=== PATIENT | male | born 1945 | race African-American/Black ===

== ENCOUNTER 2016-08-11 23:31 | Emergency (ER) | payer MEDICARE ==
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
[2016-08-12] MEDS ORDERED: TETRACAINE HCL 0.5% OPH SOLN 2 ML OD ONE (01:37)
[2016-08-12] MEDS ORDERED: TETRACAINE HCL 0.5% OPH SOLN 2 ML ONE (01:40)
[2016-08-12 09:11] VITALS: BP 108/78
== END 2016-08-12 09:47 | disposition home or self-care (01) ==
LOC: ER 23:31
DX: S09.93XA Unspecified injury of face, initial encounter (principal); S02.32XA Fracture of orbital floor, left side, initial encounter for closed fracture; W19.XXXA Unspecified fall, initial encounter
CPT/HCPCS: 70450; 70486; 99284

== ENCOUNTER 2016-10-21 10:22 | Emergency (ER) | payer MEDICARE ==
--- NOTE | 2016-10-21 10:56 | RADIOLOGY REPORT (SQ) ---
EXAM DESCRIPTION: HAND RIGHT 3 VIEWS COMPLETED DATE/TIME: 10/21/2016 10:48 am REASON FOR STUDY: base of 1st digit swelling pain COMPARISON: None. EXAM PARAMETERS: NUMBER OF VIEWS: Three views. TECHNIQUE: AP, lateral and oblique radiographic images acquired of the right hand. LIMITATIONS: None. FINDINGS: MINERALIZATION: Normal. BONES: No acute fracture or dislocation. No worrisome bone lesions. JOINTS: Advanced osteoarthritis 1st C[facility] joint. Articulations otherwise maintained. SOFT TISSUES: No soft tissue swelling. No foreign body. OTHER: No other significant finding. IMPRESSION: DEGENERATIVE CHANGE 1ST [facility] JOINT. NO ACUTE OSSEOUS ABNORMALITY. TECHNICAL DOCUMENTATION: JOB ID: [id number] [employer]- All Rights Reserved
--- NOTE | 2016-10-21 11:08 | ER Document Report ---
ED General - General Chief Complaint: Hand Pain Stated Complaint: HAND PAIN Time Seen by Provider: 10/21/16 10:30 Mode of Arrival: Medic Information source: Emergency Med Personnel Cannot obtain history due to: Dementia Notes: 71 yr old male presents with concerns from dementia care facility with swelling of the base of the thumb. Pt denies any concerns or injuries, they are unsure of the time frame. TRAVEL OUTSIDE OF THE [place] IN LAST 30 DAYS: No - HPI Onset: Other Onset/Duration: Constant Quality of pain: Achy Severity: Mild Pain Level: 1 Associated symptoms: Body/muscle aches Exacerbated by: Movement Relieved by: Denies Similar symptoms previously: No Recently seen / treated by doctor: No - Related Data Allergies/Adverse Reactions: No Known Allergies Allergy (Verified 10/21/16 10:31) Past Medical History - Social History Smoking Status: Never Smoker Cigarette use (# per day): No Chew tobacco use (# tins/day): No Smoking Education Provided: No Family History: Reviewed & Not Pertinent - Past Medical History Cardiac Medical History: Reports: Hx Atrial Fibrillation, Hx Hypercholesterolemia, Hx Hypertension Renal/ Medical History: Denies: Hx Peritoneal Dialysis - Immunizations Hx Diphtheria, Pertussis, Tetanus Vaccination: - unknown Review of Systems - Review of Systems Notes: REVIEW OF SYSTEMS: CONSTITUTIONAL : Denies fever, chills, or sweats. Denies recent illness. EENT: Denies eye, ear, throat, or mouth pain or symptoms. Denies nasal or sinus congestion or discharge. Denies throat, tongue, or mouth swelling or difficulty swallowing. CARDIOVASCULAR: Denies chest pain. Denies palpitations or racing or irregular heart beat. Denies ankle edema. RESPIRATORY: Denies cough, cold, or chest congestion. Denies shortness of breath, difficulty breathing, or wheezing. GASTROINTESTINAL: Denies abdominal pain or distention. Denies nausea, vomiting , or diarrhea. Denies blood in vomitus, stools, or per rectum. Denies black, tarry stools. Denies constipation. GENITOURINARY: Denies difficulty urinating, painful urination, burning, frequency, blood in urine, or discharge. MUSCULOSKELETAL: Denies back or neck pain or stiffness. Denies joint pain or swelling. SKIN: Denies rash, lesions or sores. HEMATOLOGIC : Denies easy bruising or bleeding. LYMPHATIC: Denies swollen, enlarged glands. NEUROLOGICAL: Denies confusion or altered mental status. Denies passing out or loss of consciousness. Denies dizziness or lightheadedness. Denies headache. Denies weakness or paralysis or loss of use of either side. Denies problems with gait or speech. Denies sensory loss, numbness, or tingling. Denies seizures. PSYCHIATRIC: Denies anxiety or stress. Denies depression, suicidal ideation, or homicidal ideation. ALL OTHER SYSTEMS REVIEWED AND NEGATIVE. Dictation was performed using [employer] voice recognition software PHYSICAL EXAMINATION: GENERAL: Well-appearing, well-nourished and in no acute distress. HEAD: Atraumatic, normocephalic. EYES: Pupils equal round and reactive to light, extraocular movements intact, sclera anicteric, conjunctiva are normal. ENT: Nares patent, oropharynx clear without exudates. Moist mucous membranes. NECK: Normal range of motion, supple without lymphadenopathy LUNGS: Breath sounds clear to auscultation bilaterally and equal. No wheezes rales or rhonchi. HEART: Regular rate and rhythm without murmurs ABDOMEN: Soft, nontender, nondistended abdomen. No guarding, no rebound. No masses appreciated. Musculoskeletal: Tenderness with range of motion of the first digit on the right hand mild edema on the palmar surface of the base of the first digit full range of motion no secondary signs of infection no obvious traumatic injury NEUROLOGICAL: Cranial nerves grossly intact. Normal speech, normal gait. Normal sensory, motor exams PSYCH: Dementia SKIN: Warm, Dry, normal turgor, no rashes or lesions noted. Course - Re-evaluation Re-evalutation: 10/21/16 11:08 X-rays consistent with osteoarthritic changes, no sign of infection is noted. I am unclear how long the patient has actually been swollen. He will be treated with anti-inflammatories given follow-up with orthopedics but at this time has no life-threatening issues After performing a Medical Screening Examination, I estimate there is LOW risk for INTRACRANIAL HEMORRHAGE, UNSTABLE SPINE FRACTURE, CENTRAL CORD SYNDROME, CAUDA EQUINA, THORACIC AORTIC DISSECTION, PNEUMOTHORAX, PERFORATED BOWEL, RUPTURED ABDOMINAL AORTIC ANEURYSM, ACUTE TENDON RUPTURE, COMPARTMENT SYNDROME, or OPEN FRACTURE, thus I consider the discharge disposition reasonable. Also, there is no evidence or peritonitis, sepsis, or toxicity. I have reevaluated this patient multiple times and no significant life threatening changes are noted. The patient and I have discussed the diagnosis and risks, and we agree with discharging home to follow-up with their primary doctor with the understanding that symptoms and presentations can change. We also discussed returning to the Emergency Department immediately if new or worsening symptoms occur. We have discussed the symptoms which are most concerning (e.g., bloody stool, fever, changing or worsening pain, vomiting) that necessitate immediate return. - Diagnostic Test Radiology reviewed: Image reviewed, Reports reviewed - osteoarthritic changes Discharge - Discharge Clinical Impression: Hand swelling Qualifiers: Laterality: right Qualified Code(s): M79.89 - Other specified soft tissue disorders Osteoarthritis Qualifiers: Osteoarthritis location: hand Osteoarthritis type: primary Laterality: right Qualified Code(s): M19.041 - Primary osteoarthritis, right hand Condition: Stable Disposition: HOME, SELF-CARE Instructions: Osteoarthritis ([facility]) Prescriptions: Ibuprofen [Motrin 600 Mg Tablet] 600 mg PO TID #15 tablet Referrals: MO POSADAS DO [ACTIVE STAFF] - Follow up tomorrow
[2016-10-21] MEDS ORDERED: IBUPROFEN 600 MG TABLET PO ONE (11:10)
[2016-10-21 11:57] VITALS: BP 136/81
== END 2016-10-21 11:57 | disposition home or self-care (01) ==
LOC: ER 10:22
DX: M79.89 Other specified soft tissue disorders (principal); M19.041 Primary osteoarthritis, right hand
CPT/HCPCS: 99284; 73130; A9270

== ENCOUNTER 2017-01-30 19:17 | Emergency (ER) | payer MEDICARE ==
[2017-01-30 20:20] LABS: ABSOLUTE MONOCYTES (AUTO) 0.5 10^3/uL (0.1-1.4); ABSOLUTE NEUT (AUTO) 2.4 10^3/uL (1.7-8.2); BASOPHILS % (AUTO) 0.9 % (0-2); EOSINOPHILS % (AUTO) 0.8 % (0-6); HEMATOCRIT 34.4 % (37.9-51.0); HEMOGLOBIN 11.8 g/dL (13.5-17.0); LYMPHOCYTES % (AUTO) 24.2 % (13-45); MEAN CORPUSCULAR HEMOGLOBIN 30.8 pg (27.0-33.4); MEAN CORPUSCULAR HGB CONC 34.3 g/dL (32.0-36.0); MEAN CORPUSCULAR VOLUME 90 fl (80-97); MONOCYTES % (AUTO) 12.5 % (3-13); RED BLOOD COUNT 3.83 10^6/uL (4.35-5.55); RED CELL DISTRIBUTION WIDTH 15.8 % (11.5-14.0); SEGMENTED NEUTROPHILS % (AUTO) 61.6 % (42-78); WHITE BLOOD COUNT 3.9 10^3/uL (4.0-10.5)
--- NOTE | 2017-01-30 21:06 | RADIOLOGY REPORT (SQ) ---
EXAM DESCRIPTION: CHEST SINGLE VIEW COMPLETED DATE/TIME: 01/30/2017 8:58 pm REASON FOR STUDY: eval pneumonia COMPARISON: None. EXAM PARAMETERS: NUMBER OF VIEWS: One view. TECHNIQUE: Single frontal radiographic view of the chest acquired. RADIATION DOSE: NA LIMITATIONS: None. FINDINGS: LUNGS AND PLEURA: No opacities, masses or pneumothorax. No pleural effusion. MEDIASTINUM AND HILAR STRUCTURES: No masses. Contour normal. HEART AND VASCULAR STRUCTURES: Cardiac silhouette is enlarged. Tortuous thoracic aorta is seen. BONES: No acute findings. HARDWARE: None in the chest. OTHER: No other significant finding. IMPRESSION: Cardiomegaly. No acute consolidations or pleural effusions are identified TECHNICAL DOCUMENTATION: JOB ID: [id number] [employer]- All Rights Reserved
[2017-01-30 21:11] LABS: ALANINE AMINOTRANSFERASE 29 U/L (21-72); ALBUMIN 4.6 g/dL (3.5-5.0); ALKALINE PHOSPHATASE 89 U/L (38-126); ANION GAP 12 (5-19); ASPARTATE AMINO TRANSFERASE 32 U/L (17-59); BILIRUBIN,DIRECT 0.3 mg/dL (0.0-0.4); BILIRUBIN,TOTAL 0.9 mg/dL (0.2-1.3); BLOOD UREA NITROGEN 17 mg/dL (7-20); CALCIUM 9.5 mg/dL (8.4-10.2); CARBON DIOXIDE 25 mmol/L (22-30); CHLORIDE 100 mmol/L (98-107); CREATININE RESULT 0.92 mg/dL (0.52-1.25); GLUCOSE 123 mg/dL (75-110); LIPASE 65.9 U/L (23-300); POTASSIUM 4.4 mmol/L (3.6-5.0); TOTAL PROTEIN 7.6 g/dL (6.3-8.2)
--- NOTE | 2017-01-30 22:11 | ER Document Report ---
ED General - General Chief Complaint: Nausea/Vomiting Stated Complaint: NAUSEA/VOMITING Time Seen by Provider: 01/30/17 19:38 Cannot obtain history due to: Dementia Notes: Patient is a 71-year-old man who presents from a [facility] with concerns of having an episode of vomiting and sweating. Patient is profoundly demented and unable to provide any additional history. The facility was apparently concerned as the patient resides in the location where apparently multiple patients have had pneumonia. TRAVEL OUTSIDE OF THE [place] IN LAST 30 DAYS: No - Related Data Allergies/Adverse Reactions: No Known Allergies Allergy (Verified 10/21/16 10:31) Past Medical History - General Information source: Emergency Med Personnel Cannot obtain history due to: Dementia - Social History Smoking Status: Unknown if Ever Smoked Lives with: [facility] Family History: Reviewed & Not Pertinent Patient has suicidal ideation: No Patient has homicidal ideation: No - Past Medical History Cardiac Medical History: Reports: Hx Atrial Fibrillation, Hx Hypercholesterolemia, Hx Hypertension Renal/ Medical History: Denies: Hx Peritoneal Dialysis - Immunizations Hx Diphtheria, Pertussis, Tetanus Vaccination: - unknown Review of Systems - Review of Systems -: Yes ROS unobtainable due to patient's medical condition Physical Exam - Vital signs Vitals: Temp Pulse Resp BP Pulse Ox 98.6 F 96 18 139/80 H 96 01/30/17 19:17 01/30/17 19:17 01/30/17 19:17 01/30/17 19:17 01/30/17 19:17 Interpretation: Normal Notes: PHYSICAL EXAMINATION: GENERAL: Elderly, in no acute distress HEAD: Atraumatic, normocephalic. EYES: Pupils equal round and reactive to light, extraocular movements intact, sclera anicteric, conjunctiva are normal. ENT: nares patent, oropharynx clear without exudates. Moderately dry mucous membranes. NECK: Normal range of motion, supple without lymphadenopathy LUNGS: Breath sounds clear to auscultation bilaterally and equal. No wheezes rales or rhonchi. HEART: Irregularly irregular rhythm without murmurs ABDOMEN: Soft, nontender, normoactive bowel sounds. No guarding, no rebound. No masses appreciated. EXTREMITIES: Normal range of motion, no pitting or edema. No cyanosis. NEUROLOGICAL: No focal neurological deficits. Moves all extremities spontaneously and on command. PSYCH: Alert, not oriented to even person SKIN: Warm, Dry, normal turgor, no rashes or lesions noted. Course - Re-evaluation Re-evalutation: 01/30/17 22:09 Patient presents with facility concerned that he had an episode of vomiting and sweating prior to arrival. Patient is extremely demented and unable to provide any meaningful history here in the emergency department. He does not have any acute complaints. No findings on physical examination. Laboratories are unremarkable. EKG without any ischemic changes. Chest x-ray is clear. I do not see an indication for further imaging or laboratory testing at this time based on exam and history. The exact etiology of his episode of vomiting is unclear but given the absence of any abdominal pain and his ongoing ability to tolerate oral intake here in the emergency room without any apparent difficulty or repeated episodes of vomiting makes the possibility of an acute intra- abdominal pathology unlikely. Will discharge with return precautions and follow -up recommendations. - Vital Signs Vital signs: Temp Pulse Resp BP Pulse Ox 97.9 F 94 20 153/88 H 100 01/30/17 22:26 01/30/17 22:26 01/30/17 22:26 01/30/17 22:26 01/30/17 22:26 - Laboratory Result Diagrams: 01/30/17 19:31 01/30/17 20:15 Laboratory results interpreted by me: 01/30/17 01/30/17 19:31 20:15 WBC 3.9 L RBC 3.83 L Hgb 11.8 L Hct 34.4 L RDW 15.8 H Plt Count 143 L Glucose 123 H - Diagnostic Test Radiology reviewed: Image reviewed, Reports reviewed Radiology results interpreted by me: 01/30/17 22:10 Chest x-ray: No acute infiltrate or pneumothorax - EKG Interpretation by Me Additional EKG results interpreted by me: 01/30/17 22:11 Atrial fibrillation. Rate 105. No ST elevations or depressions. QTC is 475. Discharge - Discharge Clinical Impression: Diaphoresis Vomiting Qualifiers: Vomiting type: unspecified Vomiting Intractability: non-intractable Nausea presence: without nausea Qualified Code(s): R11.11 - Vomiting without nausea Condition: Stable Disposition: HOME, SELF-CARE Additional Instructions: Please return to the emergency room immediately if you experience any concerning symptoms including high fevers, severe headache, chest pain, difficulty breathing, abdominal pain, slurred speech, numbness or weakness in your arms or legs, or any other symptom that concerns you.
[2017-01-30 22:30] VITALS: BP 153/88
--- NOTE | 2017-01-31 08:13 | EKG REPORT ---
SEVERITY:- ABNORMAL ECG - ATRIAL FIBRILLATION LEFT VENTRICULAR HYPERTROPHY BORDERLINE PROLONGED QT INTERVAL : Confirmed by: Markel Blake MD 31-Jan-2017 08:13:09
== END 2017-01-30 22:45 | disposition home or self-care (01) ==
LOC: ER 19:17
DX: R61 Generalized hyperhidrosis (principal); R11.11 Vomiting without nausea; F03.90 Unspecified dementia, unspecified severity, without behavioral disturbance, psychotic disturbance, mood disturbance, and anxiety; I48.91 Unspecified atrial fibrillation; E78.00 Pure hypercholesterolemia, unspecified; I10 Essential (primary) hypertension
CPT/HCPCS: 36415; 71010; 80053; 83690; 84484; 85025; 93005; 93010; 99284

== ENCOUNTER 2017-04-05 18:01 | Emergency (ER) | payer MEDICARE ==
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
== END 2017-04-05 22:15 | disposition home or self-care (01) ==
LOC: ER 18:01
DX: Z71.1 Person with feared health complaint in whom no diagnosis is made (principal); S09.93XA Unspecified injury of face, initial encounter; Y09 Assault by unspecified means
CPT/HCPCS: 99284

== ENCOUNTER 2017-08-14 17:33 | Emergency (ER) | payer MEDICARE ==
--- NOTE | 2017-08-14 18:32 | ER Document Report ---
ED General - General Chief Complaint: Altered Mental Status Stated Complaint: ALTERED MENTAL STATUS Time Seen by Provider: 08/14/17 18:15 Notes: This is a 72-year-old Alzheimer's dementia patient to the emergency department for evaluation of "not acting right". Patient unable to communicate with us. No documentation from snf. Apparently lives in an Alzheimer's unit. TRAVEL OUTSIDE OF THE [place]. IN LAST 30 DAYS: No - Related Data Allergies/Adverse Reactions: No Known Allergies Allergy (Verified 10/21/16 10:31) Past Medical History - General Information source: [facility] Records - Social History Smoking Status: Never Smoker Chew tobacco use (# tins/day): No Frequency of alcohol use: None Drug Abuse: None Lives with: Snf Family History: Reviewed & Not Pertinent Patient has suicidal ideation: No Patient has homicidal ideation: No - Past Medical History Cardiac Medical History: Reports: Hx Atrial Fibrillation, Hx Hypercholesterolemia, Hx Hypertension Renal/ Medical History: Denies: Hx Peritoneal Dialysis - Immunizations Hx Diphtheria, Pertussis, Tetanus Vaccination: - unknown Review of Systems - Review of Systems -: Yes ROS unobtainable due to patient's medical condition - Due to dementia Physical Exam - Vital signs Vitals: Temp Pulse Resp BP Pulse Ox 98.2 F 67 16 158/65 H 91 L 08/14/17 18:01 08/14/17 18:01 08/14/17 18:01 08/14/17 18:01 08/14/17 18:01 Interpretation: Normal - General General appearance: Appears well, Alert - HEENT Head: Normocephalic, Atraumatic Eyes: Normal Pupils: PERRL - Respiratory Respiratory status: No respiratory distress Chest status: Nontender Breath sounds: Normal Chest palpation: Normal - Cardiovascular Rhythm: Regular Heart sounds: Normal auscultation Murmur: No - Abdominal Inspection: Normal Distension: No distension Bowel sounds: Normal Tenderness: Nontender Organomegaly: No organomegaly - Back Back: Normal, Nontender - Extremities General upper extremity: Normal inspection, Nontender, Normal color, Normal ROM , Normal temperature General lower extremity: Normal inspection, Nontender, Normal color, Normal ROM , Normal temperature, Normal weight bearing. No: Juanito's sign - Neurological Neuro grossly intact: Yes Cognition: Confused Tatiana Coma Scale Eye Opening: Spontaneous [place] Coma Scale Verbal: Confused Motor strength normal: LUE, RUE, LLE, RLE Sensory: Normal Notes: Walking around the ER without difficulty - Skin Skin Temperature: Warm Skin Moisture: Dry Skin Color: Normal Course - Re-evaluation Re-evalutation: 08/14/17 18:47 No signs of trauma. Normal vital signs. No significant concern in my part at this time the patient has anything acute. Will order basic labs just to be safe. If able to get urine will evaluate that as well. 08/14/17 20:41 No major pathology at this time. Slightly elevated potassium but EKG does not show any signs of peaked T waves. Patient is eating. No acute distress. Will DC at this time. - Vital Signs Vital signs: Temp Pulse Resp BP Pulse Ox 98.2 F 67 16 158/65 H 91 L 08/14/17 18:01 08/14/17 18:01 08/14/17 18:01 08/14/17 18:01 08/14/17 18:01 - Laboratory Result Diagrams: 08/14/17 19:24 08/14/17 19:24 Laboratory results interpreted by me: 08/14/17 08/14/17 08/14/17 19:24 19:24 19:24 RBC 4.16 L Hgb 12.8 L Hct 37.6 L RDW 15.5 H Plt Count 140 L Potassium 5.3 H Glucose 171 H Urine Ascorbic Acid 40 H - EKG Interpretation by Ks EKG shows normal: Sinus rhythm, [place], Intervals, QRS Complexes, ST-T Waves Discharge - Discharge Clinical Impression: Dementia Qualifiers: Dementia type: Alzheimer's disease Alzheimer's disease onset: late-onset Dementia behavioral disturbance: without behavioral disturbance Qualified Code(s ): G30.1 - Alzheimer's disease with late onset; F02.80 - Dementia in other diseases classified elsewhere without behavioral disturbance; F02.80 - Dementia in other diseases classified elsewhere without behavioral disturbance; F02.80 - Dementia in other diseases classified elsewhere without behavioral disturbance Disposition: SNF-Other Instructions: Dementia ([facility])
[2017-08-14 19:34] LABS: ABSOLUTE BASOPHILS # (AUTO) 0.1 10^3/uL (0.0-0.2); ABSOLUTE LYMPHOCYTES (AUTO) 1.1 10^3/uL (0.5-4.7); ABSOLUTE MONOCYTES (AUTO) 0.3 10^3/uL (0.1-1.4); ABSOLUTE NEUT (AUTO) 2.6 10^3/uL (1.7-8.2); BASOPHILS % (AUTO) 1.2 % (0-2); EOSINOPHILS % (AUTO) 1.2 % (0-6); HEMATOCRIT 37.6 % (37.9-51.0); HEMOGLOBIN 12.8 g/dL (13.5-17.0); LYMPHOCYTES % (AUTO) 26.3 % (13-45); MEAN CORPUSCULAR HEMOGLOBIN 30.7 pg (27.0-33.4); MEAN CORPUSCULAR VOLUME 90 fl (80-97); MONOCYTES % (AUTO) 8.1 % (3-13); PLATELET COUNT 140 10^3/uL (150-450); RED BLOOD COUNT 4.16 10^6/uL (4.35-5.55); RED CELL DISTRIBUTION WIDTH 15.5 % (11.5-14.0); SEGMENTED NEUTROPHILS % (AUTO) 63.2 % (42-78); TOTAL CELLS COUNTED % (AUTO) 100 %; WHITE BLOOD COUNT 4.1 10^3/uL (4.0-10.5)
[2017-08-14 19:45] LABS: APPEARANCE,URINE CLEAR; BILIRUBIN,URINE NEGATIVE (NEGATIVE); COLOR,URINE YELLOW; GLUCOSE, URINE NEGATIVE (NEGATIVE); KETONES,URINE NEGATIVE (NEGATIVE); LEUKOCYTE ESTERASE,URINE NEGATIVE (NEGATIVE); NITRITE,URINE NEGATIVE (NEGATIVE); PROTEIN,URINE NEGATIVE (NEGATIVE); URINE SPECIFIC GRAVITY 1.018; UROBILINOGEN,URINE NEGATIVE mg/dL (<2.0)
[2017-08-14 19:53] LABS: ANION GAP 11 (5-19); BLOOD UREA NITROGEN 20 mg/dL (7-20); CARBON DIOXIDE 26 mmol/L (22-30); CHLORIDE 102 mmol/L (98-107); GLUCOSE 171 mg/dL (75-110); POTASSIUM 5.3 mmol/L (3.6-5.0); SODIUM 139.3 mmol/L (137-145)
--- NOTE | 2017-08-14 21:15 | EKG REPORT ---
SEVERITY:- ABNORMAL ECG - ATRIAL FIBRILLATION INCOMPLETE RIGHT BUNDLE BRANCH BLOCK : Confirmed by: Markel Blake MD 14-Aug-2017 21:13:53
[2017-08-14 21:23] VITALS: BP 154/86
== END 2017-08-14 21:20 ==
LOC: ER 17:33
DX: G30.1 Alzheimer's disease with late onset (principal); F02.80 Dementia in other diseases classified elsewhere, unspecified severity, without behavioral disturbance, psychotic disturbance, mood disturbance, and anxiety; I48.91 Unspecified atrial fibrillation
CPT/HCPCS: 36415; 80048; 81001; 82962; 85025; 93005; 93010; 99285

== ENCOUNTER 2017-09-14 17:05 | Emergency (ER) | payer MEDICARE ==
--- NOTE | 2017-09-14 17:43 | ER Document Report ---
ED General - General Chief Complaint: Back Pain Stated Complaint: ALTERED MENTAL STATUS Time Seen by Provider: 09/14/17 17:25 Mode of Arrival: Medic Information source: Outside Facility Records Cannot obtain history due to: Dementia Notes: 72-year-old male brought to the emergency department by EMS for back and hip pain. EMS state that the patient denies back or hip pain. Patient has a history of dementia and is a poor historian. Contacted the nurse at the group home and was told that they were concerned for possible urinary tract infection. No history of trauma or falls. The nurse caring for him says that he did not exhibit any pain to palpation of his back or hips. She is unsure why that was told to EMS. She says that the patient kept trying to get out of his bed. She was just concerned about UTI. Patient was at his normal mental status baseline upon transfer by EMS per nurse. TRAVEL OUTSIDE OF THE [place] IN LAST 30 DAYS: No - HPI Onset: Just prior to arrival Onset/Duration: Sudden Quality of pain: No pain Severity: None Pain Level: Denies Associated symptoms: None Exacerbated by: Denies Relieved by: Denies - Related Data Allergies/Adverse Reactions: No Known Allergies Allergy (Verified 10/21/16 10:31) Past Medical History - Social History Smoking Status: Unknown if Ever Smoked Family History: Reviewed & Not Pertinent - Past Medical History Cardiac Medical History: Reports: Hx Atrial Fibrillation, Hx Hypercholesterolemia, Hx Hypertension Renal/ Medical History: Denies: Hx Peritoneal Dialysis - Immunizations Hx Diphtheria, Pertussis, Tetanus Vaccination: - unknown Review of Systems - Review of Systems -: Yes ROS unobtainable due to patient's medical condition Physical Exam - Notes Notes: PHYSICAL EXAMINATION: GENERAL: Drowsy, pleasantly demented. HEAD: Atraumatic. EYES: Pupils equal round and reactive to light, extraocular movements intact, sclera anicteric, conjunctiva are normal. ENT: Nares patent, oropharynx clear without exudates. Moist mucous membranes. NECK: Normal range of motion, supple without lymphadenopathy LUNGS: Breath sounds clear to auscultation bilaterally and equal. No wheezes rales or rhonchi. HEART: Regular rate and rhythm without murmurs ABDOMEN: Soft, nontender, nondistended abdomen. No guarding, no rebound. No masses appreciated. Musculoskeletal: Normal range of motion, no pitting or edema. No cyanosis. No tenderness to palpation of the CTLS spine, hips, femur. NEUROLOGICAL: Cranial nerves grossly intact. Normal speech. Normal sensory, motor exams SKIN: Warm, Dry, normal turgor, no rashes or lesions noted. Course - Re-evaluation Re-evalutation: 09/14/17 19:17 Urinalysis is within normal limits. Pelvis x-ray was obtained and does not show acute process. L-spine images were done. Degenerative changes were seen. There is a T12 anterior wedge compression fracture that is age indeterminant. Height is not greater than 50%. Patient does not have any tenderness to palpation of this area. Nursing facility deny trauma or injury. I will refer the patient to orthopedic surgery. - Laboratory Laboratory results interpreted by me: 09/14/17 18:20 Urine Urobilinogen 4.0 H Discharge - Discharge Clinical Impression: T12 compression fracture Condition: Stable Disposition: HOME, SELF-CARE Instructions: Compression Fracture of the Spine ([facility]) Referrals: MO POSADAS DO [ACTIVE STAFF] - Follow up as needed
--- NOTE | 2017-09-14 18:20 | RADIOLOGY REPORT (SQ) ---
EXAM DESCRIPTION: HIP BILATERAL COMPLETED DATE/TIME: 09/14/2017 6:12 pm REASON FOR STUDY: back and hip pain COMPARISON: None. NUMBER OF VIEWS: Two views TECHNIQUE: AP pelvis and additional frog-leg view of both hips. LIMITATIONS: None. FINDINGS: MINERALIZATION: Normal. HIPS: No acute fracture or dislocation. No worrisome bone lesions. PELVIS AND SACRUM: No acute fracture or dislocation. No worrisome bone lesions. PUBIS AND ISCHIUM: No acute fracture. LOWER LUMBAR SPINE: Degenerative changes lower lumbar spine. SOFT TISSUES: No findings. OTHER: No other significant finding. IMPRESSION: NEGATIVE STUDY OF THE PELVIS AND HIPS. TECHNICAL DOCUMENTATION: JOB ID: [id number] [employer]- All Rights Reserved Reading location - IP/workstation name: [email or web address]
--- NOTE | 2017-09-14 18:22 | RADIOLOGY REPORT (SQ) ---
EXAM DESCRIPTION: L SPINE 2 VIEWS COMPLETED DATE/TIME: 09/14/2017 6:12 pm REASON FOR STUDY: back and hip pain COMPARISON: None. NUMBER OF VIEWS: 4views TECHNIQUE: AP and lateral, both obliques radiographic images acquired of the lumbar spine. LIMITATIONS: None. FINDINGS: MINERALIZATION: Normal. SEGMENTATION: Normal. No transitional anatomy. ALIGNMENT: Normal. VERTEBRAE: Anterior wedge compression fracture T12 age indeterminate. DISCS: Diffuse degenerative disc disease L2-3, L3-4, L4-5. POSTERIOR ELEMENTS: Pedicles and facets are intact. No pars defect or posterior arch defects. HARDWARE: None in the spine. PARASPINAL SOFT TISSUES: Normal. PELVIS: Intact as visualized. No fractures or worrisome bone lesions. SI joints intact. OTHER: No other significant finding. IMPRESSION: Anterior wedge compression fracture T12 age indeterminate. Multilevel degenerative discs. TECHNICAL DOCUMENTATION: JOB ID: [id number] [employer]- All Rights Reserved Reading location - IP/workstation name: [email or web address]
[2017-09-14 18:42] LABS: APPEARANCE,URINE CLEAR; BILIRUBIN,URINE NEGATIVE (NEGATIVE); COLOR,URINE YELLOW; GLUCOSE, URINE NEGATIVE (NEGATIVE); KETONES,URINE NEGATIVE (NEGATIVE); LEUKOCYTE ESTERASE,URINE NEGATIVE (NEGATIVE); NITRITE,URINE NEGATIVE (NEGATIVE); PROTEIN,URINE NEGATIVE (NEGATIVE)
== END 2017-09-14 20:00 | disposition home or self-care (01) ==
LOC: ER 17:05
DX: S22.089A Unspecified fracture of T11-T12 vertebra, initial encounter for closed fracture (principal); M54.9 Dorsalgia, unspecified; F03.90 Unspecified dementia, unspecified severity, without behavioral disturbance, psychotic disturbance, mood disturbance, and anxiety; I10 Essential (primary) hypertension; X58.XXXA Exposure to other specified factors, initial encounter
CPT/HCPCS: 51701; 72100; 73522; 81001; 99284

== ENCOUNTER 2017-09-17 10:04 | Emergency (ER) | payer MEDICARE ==
--- NOTE | 2017-09-17 11:15 | ER Document Report ---
ED General - General Mode of Arrival: Medic Information source: Emergency Med Personnel TRAVEL OUTSIDE OF THE [place] IN LAST 30 DAYS: No - General Chief Complaint: Back Pain Stated Complaint: FALL BACK PAIN Time Seen by Provider: 09/17/17 10:38 Notes: Patient is a 72-year-old demented male presenting to the emergency department via EMS from [facility] complaining of back pain. According to [facility] records and ED nurses note, patient was seen in the emergency department on 09/14/2017 due to a fall. Patient had an xray performed which showed a T11-T12 wedge compression fracture. Patient did not initially complain of any pain. Per ED nursing staff, patient was walking with staff at [facility] today when he fell to his knees due to pain. Staff there then proceeded to send him to the emergency department. At bedside patient does not answer all questions but denies pain denies pain to myself and nursing staff. (DILIP ENCINAS) - Related Data Allergies/Adverse Reactions: No Known Allergies Allergy (Verified 09/17/17 12:07) Past Medical History - Social History Smoking Status: Unknown if Ever Smoked Chew tobacco use (# tins/day): No Frequency of alcohol use: None Drug Abuse: None Family History: Reviewed & Not Pertinent Patient has suicidal ideation: No Patient has homicidal ideation: No - Past Medical History Cardiac Medical History: Reports: Hx Atrial Fibrillation, Hx Hypercholesterolemia, Hx Hypertension - Immunizations Hx Diphtheria, Pertussis, Tetanus Vaccination: - unknown Review of Systems - Review of Systems -: Yes ROS unobtainable due to patient's medical condition - Obtained from nurses note. Musculoskeletal: See HPI Physical Exam - Vital signs Vitals: Pulse 94 09/17/17 10:30 - Notes Notes: GENERAL: Alert, does not answer questions. Disoriented to person, place or time. No acute distress. HEAD: Normocephalic, atraumatic. EYES: Pupils equal, round, and reactive to light. Extraocular movements intact. ENT: Oral mucosa moist, tongue midline. NECK: Full range of motion. Supple. Trachea midline. LUNGS: Clear to auscultation bilaterally, no wheezes, rales, or rhonchi. No respiratory distress. HEART: 1/6 systolic injection murmur, mildly tachycardic. No gallops or rubs. ABDOMEN: Soft, non-tender. Non-distended. Easily reducible umbilical hernia. Bowel sounds present in all 4 quadrants. EXTREMITIES: Moves all 4 extremities spontaneously. NEUROLOGICAL: Demented at baseline, does not answer all questions. PSYCH: Normal affect, normal mood. SKIN: Warm, dry, normal turgor. No rashes or lesions noted. BACK: No midline bony tenderness. No step-offs or deformities. No evidence of trauma. (DILIP ENCINAS) correction to scribe exam, there is an "ejection murmur", not an injection murmur (ANITA WHALEN) Course - Re-evaluation Re-evalutation: 09/17/17 12:30 X-rays show unchanged chronic fractures in T11 and T12. No new fractures. skilled nursing reports that the patient collapsed from pain however here the patient is able to crawl out of bed, attempts to ambulate while trying to get out of his bed, rolls over in bed without any difficulty and denies any pain. No evidence of acute pain or acute fractures today. Patient will be discharged back to the [facility]. (ANITA WHALEN) - Vital Signs Vital signs: Temp Pulse Resp BP Pulse Ox 97.8 F 104 H 20 131/98 H 95 09/17/17 16:26 09/17/17 16:26 09/17/17 16:26 09/17/17 16:26 09/17/17 16:26 Discharge - Discharge Clinical Impression: T12 compression fracture Condition: Stable Disposition: HOME, SELF-CARE Additional Instructions: Today's x-rays did not show any signs of new fracture since his previous fall. Patient denies any pain for me here, there was no pain on his examination. I have prescribed Lidoderm patches that he can use to try and help with any pain that he may develop at the [facility]. Please follow-up with his primary care physician for further pain management. I feel given his exam today that it would be a poor choice to start narcotics in this patient who is already prone to falls. Prescriptions: Lidocaine [Lidoderm 5% (700 mg) Transdermal Patch] 1 patch TP DAILY #30 adh..patch Scribe Attestation: 09/17/17 18:02 I personally performed the services described in the documentation, reviewed and edited the documentation which was dictated to the scribe in my presence, and it accurately records my words and actions. (ANITA WHALEN) Scribe Documentation - Scribe Written by Frank:: Frank Marquez, 09/17/2017 11:23 acting as scribe for :: Macho
--- NOTE | 2017-09-17 12:05 | RADIOLOGY REPORT (SQ) ---
EXAM DESCRIPTION: L SPINE WHOLE COMPLETED DATE/TIME: 09/17/2017 11:38 am REASON FOR STUDY: repeat fall, back pain COMPARISON: 09/14/2017 NUMBER OF VIEWS: Five views including obliques. TECHNIQUE: AP, lateral, oblique, and sacral radiographic images acquired of the lumbar spine. LIMITATIONS: None. FINDINGS: MINERALIZATION: Normal. SEGMENTATION: Partial sacralization of L5 on the left. ALIGNMENT: Mild scoliosis convex to the right. VERTEBRAE: Old compression fractures at T11 and T12. No acute fractures. DISCS: Moderate degenerative disc disease. POSTERIOR ELEMENTS: Mild to moderate degenerative changes involving the facet joints. HARDWARE: None in the spine. PARASPINAL SOFT TISSUES: Normal. PELVIS: Intact as visualized. No fractures or worrisome bone lesions. SI joints intact. OTHER: No other significant finding. IMPRESSION: 1. Compression fractures at T11 and T12 which were present on the prior study. These a re age indeterminate but probably old. No new compression fractures. 2. Moderate degenerative changes. TECHNICAL DOCUMENTATION: JOB ID: [id number] [employer]- All Rights Reserved Reading location - IP/workstation name: [email or web address]
[2017-09-17 16:29] VITALS: BP 131/98
== END 2017-09-17 16:27 | disposition home or self-care (01) ==
LOC: ER 10:04
DX: M48.54XA Collapsed vertebra, not elsewhere classified, thoracic region, initial encounter for fracture (principal); I10 Essential (primary) hypertension; R00.0 Tachycardia, unspecified; R01.1 Cardiac murmur, unspecified
CPT/HCPCS: 99284; 72110; L0120

== ENCOUNTER → 2017-10-30 | Outpatient (CLI) | payer MEDICARE, OTHER ==
--- NOTE | 2017-10-30 15:46 | RADIOLOGY REPORT (SQ) ---
EXAM DESCRIPTION: T SPINE AP/LAT COMPLETED DATE/TIME: 10/30/2017 3:24 pm REASON FOR STUDY: WEDGE COMPRESSION FX OF T-SPINE Z53.9 PROCEDURE AND TREATMENT NOT CARRIED OUT, UN SPECIFIED R COMPARISON: None. NUMBER OF VIEWS: Two views. TECHNIQUE: AP and lateral radiographic images acquired of the thoracic spine. LIMITATIONS: Lower thoracic spine is not included optimally on the lateral view. FINDINGS: MINERALIZATION: Normal. ALIGNMENT: Upper lumbar scoliosis. VERTEBRAE: There is mild anterior wedging what appear to be T11 and T12. These vertebrae are not see n in their entirety. DISCS: No significant loss of height or significant narrowing. No large osteophytes. HARDWARE: None in the spine. MEDIASTINUM AND SOFT TISSUES: Normal heart size and aortic contour. No soft tissue abnormality. VISUALIZED LUNG TATE: Clear. OTHER: No other significant finding. IMPRESSION: Mild anterior wedging of what appear to be T11 and T12. These findings do not appear to be acute. TECHNICAL DOCUMENTATION: JOB ID: [id number] [employer]- All Rights Reserved Reading location - IP/workstation name: [email or web address]
--- NOTE | 2017-10-30 16:37 | RADIOLOGY REPORT (SQ) ---
EXAM DESCRIPTION: NM BONE SCAN LIMITED COMPLETED DATE/TIME: 10/30/2017 3:28 pm REASON FOR STUDY: S22.000A WEDGE COMPRESSION FRACTURE OF UNSPECIFIED THORACIC VERTEBRA, INITI Z53.9 PROCEDURE AND TREATMENT NOT CARRIED OUT, UNSPECIFIED R COMPARISON: Thoracic spine films 10/30/2017 Lumbar spine films 09/17/2017 RADIONUCLIDE AND DOSE: 21.6 millicuries Tc99m MDP. The route of agent administration: Intravenous. ADDITIONAL DRUGS AND DOSES: None. TECHNIQUE: Routine delayed images at 3 hours post radionuclide injection acquired of the bony skelet on including anterior and posterior, and multiple oblique projections and additional focused images a s needed. LIMITATIONS: None. FINDINGS: Patient has significant thoracic kyphosis. AP, posterior, and multiple oblique images of the thorax were obtained. No bandlike increased uptake over the thoracic spine worrisome for acute or subacute compression defo rmity. There is mild increased uptake at the bilateral L1-2 facet joints. There is increased uptake in both elbows, and both glenohumeral joints likely from osteoarthritis. No abnormal increased rib uptake worrisome for occult fracture IMPRESSION: No bone scan evidence of acute thoracic compression deformity. Bilateral facet arthropathy at L1-2. 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 TECHNICAL DOCUMENTATION: JOB ID: [id number] [employer]- All Rights Reserved Reading location - IP/workstation name: [email or web address]
== END ==
LOC: RAD 10-22 10:54
PROVIDERS: ATTEND Family Medicine
DX: S22.000A Wedge compression fracture of unspecified thoracic vertebra, initial encounter for closed fracture (principal); X58.XXXA Exposure to other specified factors, initial encounter; Y93.9 Activity, unspecified; Y92.9 Unspecified place or not applicable
CPT/HCPCS: 72070; 78305; A9561; Q9969

== ENCOUNTER 2018-01-12 13:26 | Emergency (ER) | payer MEDICARE ==
[2018-01-12 13:36] VITALS: BP 133/77
--- NOTE | 2018-01-12 13:43 | ER Document Report ---
ED General - General Chief Complaint: Hip Pain Stated Complaint: COLD SYMPTOMS Time Seen by Provider: 01/12/18 13:32 TRAVEL OUTSIDE OF THE [place] IN LAST 30 DAYS: No - HPI Notes: Patient is a 72-year-old male that presents to the emergency department for chief complaint of left hip pain. Patient has advanced Alzheimer's and lives at an Alzheimer's care facility. Today they noticed when he was walking he was pointing to his left hip and seemed to be limping. They denied any injury or falls. EMS was called and reports patient was able to stand and ambulate without issue to the ambulance. Patient currently has no complaints. HPI is limited because of his Alzheimer's dementia Past Medical History: Alzheimer's Past Surgical History: Reviewed in chart Social History: Viewed in chart Family History: Reviewed and noncontributory for presenting illness Allergies: Reviewed, see documented allergy list. REVIEW OF SYSTEMS: Unable to obtain because of dementia PHYSICAL EXAMINATION: Vital signs reviewed, nursing noted reviewed. GENERAL: Well-appearing, well-nourished and in no acute distress. HEAD: Atraumatic, normocephalic. EYES: Eyes appear normal, extraocular movements intact, sclera anicteric, conjunctiva are normal. ENT: nares patent, oropharynx clear without exudates. Moist mucous membranes. NECK: Normal range of motion, supple without lymphadenopathy LUNGS: Breath sounds clear to auscultation bilaterally and equal. No wheezes rales or rhonchi. HEART: Regular rate and rhythm without murmurs ABDOMEN: Soft, nontender, normoactive bowel sounds. No rebound, guarding, or rigidity. No masses appreciated. EXTREMITIES: No hip tenderness bilaterally. Pelvis stable. Normal range of motion of lower extremities. no pitting or edema. NEUROLOGICAL: No focal neurological deficits. Moves all extremities spontaneously Motor and sensory grossly intact on exam. PSYCH: Normal mood, normal affect. SKIN: Warm, Dry, normal turgor, no rashes or lesions noted on exposed skin - Related Data Allergies/Adverse Reactions: No Known Allergies Allergy (Verified 09/17/17 12:07) Past Medical History - Social History Smoking Status: Never Smoker Family History: Reviewed & Not Pertinent - Past Medical History Cardiac Medical History: Reports: Hx Atrial Fibrillation, Hx Hypercholesterolemia, Hx Hypertension Renal/ Medical History: Denies: Hx Peritoneal Dialysis - Immunizations Hx Diphtheria, Pertussis, Tetanus Vaccination: - unknown Review of Systems - Review of Systems Notes: Dictated Physical Exam - Vital signs Vitals: Temp Pulse Resp BP Pulse Ox 99.2 F 98 20 133/77 H 100 01/12/18 13:32 01/12/18 13:32 01/12/18 13:32 01/12/18 13:32 01/12/18 13:32 - Notes Notes: Dictated Course - Re-evaluation Re-evalutation: 01/12/18 13:42 Vitals reviewed. Nursing notes reviewed. Patient has no complaints of pain. He has no external signs of injury or history of injury. There is no joint erythema and I do not suspect septic arthritis. 01/12/18 14:12 X-ray shows no acute fracture. Patient ambulated in the department with no antalgic gait. He will be discharged back to nursing facility. - Vital Signs Vital signs: Temp Pulse Resp BP Pulse Ox 99.2 F 98 20 133/77 H 100 01/12/18 13:32 01/12/18 13:32 01/12/18 13:32 01/12/18 13:32 01/12/18 13:32 - Diagnostic Test Radiology reviewed: Image reviewed Discharge - Discharge Clinical Impression: Left hip pain Condition: Stable Disposition: HOME, SELF-CARE Instructions: Arthralgia ([facility]) Additional Instructions: Please return to the emergency department if you have any worsening, or concern of your symptoms. Please return to the emergency department if you develop chest pain, difficulty breathing, severe abdominal pain, or ongoing vomiting. Please follow-up with your primary care physician in 2-3 days and any other recommended physicians. If prescribed, take all medications as directed. If you have any questions or concerns do not hesitate to return the emergency department for evaluation. [] Referrals: RUFINO PATEL, [Primary Care Provider] - Follow up as needed
--- NOTE | 2018-01-12 14:45 | RADIOLOGY REPORT (SQ) ---
EXAM DESCRIPTION: HIP LEFT AP/LATERAL COMPLETED DATE/TIME: 01/12/2018 2:02 pm REASON FOR STUDY: facility reports hip pain COMPARISON: 09/14/2017 NUMBER OF VIEWS: Two views. TECHNIQUE: AP pelvis and additional cross-table view of the left hip. LIMITATIONS: None. FINDINGS: MINERALIZATION: Osteopenia. LEFT HIP: No fracture or dislocation. No worrisome bone lesions. RIGHT HIP: No fracture or dislocation. No worrisome bone lesions. PUBIS AND ISCHIUM: No fracture. PELVIS: Mucoperiosteal reaction along the right iliopectineal line. SACRUM: No fracture or dislocation. No worrisome bone lesions. LOWER LUMBAR SPINE: Degenerative disc disease of the visualized lower lumbar spine. Lumbosacral duque sitional anatomy with a left assimilation joint. SOFT TISSUES: Scattered vascular calcifications. OTHER: No other significant finding. IMPRESSION: Periosteum reaction along the right iliopectineal line which may represent a stress reac tion. TECHNICAL DOCUMENTATION: JOB ID: [id number] [employer]- All Rights Reserved Reading location - IP/workstation name: [email or web address]
== END 2018-01-12 15:30 | disposition home or self-care (01) ==
LOC: ER 13:26
DX: M25.552 Pain in left hip (principal); G30.9 Alzheimer's disease, unspecified; F02.80 Dementia in other diseases classified elsewhere, unspecified severity, without behavioral disturbance, psychotic disturbance, mood disturbance, and anxiety; I48.91 Unspecified atrial fibrillation; E78.00 Pure hypercholesterolemia, unspecified; I10 Essential (primary) hypertension
CPT/HCPCS: 99283

== ENCOUNTER 2018-04-28 17:36 | Emergency (ER) | payer MEDICARE ==
[2018-04-28] MEDS ORDERED: NORMAL SALINE 1000 ML 1,000 ML IV ONE (19:08)
[2018-04-28] MEDS ORDERED: KETOROLAC TROMETHAMINE INJ/PF 30 MG/1 ML SDV IV ONE (19:09)
--- NOTE | 2018-04-28 19:09 | ER Document Report ---
ED General - General Chief Complaint: Urinary Problem Stated Complaint: BLOOD IN URINE Time Seen by Provider: 04/28/18 18:46 Primary Care Provider: RUFINO PATEL DO [Primary Care Provider] - Follow up as needed Notes: 72-year-old male, dementia, to the emergency department for evaluation of hematuria. Patient reportedly lives in a longterm. Nurses state the patient was complaining of pain in the lower abdomen and they noticed that he had large amount of blood in his urine. No fever, chills, sweats. No other issues at this time. TRAVEL OUTSIDE OF THE [place] IN LAST 30 DAYS: No - HPI Onset: Just prior to arrival Onset/Duration: Sudden Severity: Moderate Pain Level: Denies - Related Data Allergies/Adverse Reactions: divalproex sodium [From Depakote] Allergy (Verified 04/28/18 19:02) Past Medical History - General Information source: Relative, [facility] Records Cannot obtain history due to: Dementia - Social History Smoking Status: Unknown if Ever Smoked Frequency of alcohol use: None Drug Abuse: None Lives with: Shelter Family History: Reviewed & Not Pertinent Patient has suicidal ideation: No Patient has homicidal ideation: No - Past Medical History Cardiac Medical History: Reports: Hx Atrial Fibrillation, Hx Hypercholesterolemia, Hx Hypertension Neurological Medical History: Reports: Hx Seizures Renal/ Medical History: Denies: Hx Peritoneal Dialysis - Immunizations Hx Diphtheria, Pertussis, Tetanus Vaccination: - unknown Review of Systems - Review of Systems -: Yes ROS unobtainable due to patient's medical condition Physical Exam - Vital signs Vitals: Temp Pulse Resp BP Pulse Ox 98.0 F 85 20 118/95 H 99 04/28/18 17:37 04/28/18 17:37 04/28/18 17:37 04/28/18 17:37 04/28/18 17:37 Interpretation: Normal - General General appearance: Appears well, Alert - HEENT Head: Normocephalic, Atraumatic Eyes: Normal Pupils: PERRL - Respiratory Respiratory status: No respiratory distress Chest status: Nontender Breath sounds: Normal Chest palpation: Normal - Cardiovascular Rhythm: Regular Heart sounds: Normal auscultation Murmur: No - Abdominal Inspection: Normal Distension: No distension Bowel sounds: Normal Tenderness: Tender - Mild tenderness to deep palpation of the suprapubic area. Organomegaly: No organomegaly - Genitourinary Inspection: Normal Tenderness: Nontender Scrotum: Normal - Back Back: Normal, Nontender - Extremities General upper extremity: Normal inspection, Nontender, Normal color, Normal ROM, Normal temperature General lower extremity: Normal inspection, Nontender, Normal color, Normal ROM, Normal temperature, Normal weight bearing. No: Juanito's sign - Neurological Cognition: Confused, Short term memory loss Alta Coma Scale Eye Opening: Spontaneous [place]ta Coma Scale Verbal: Confused [place]ta Coma Scale Motor: Obeys Commands Tatiana Coma Scale Total: 14 Speech: Normal Motor strength normal: LUE, RUE, LLE, RLE Sensory: Normal - Psychological Associated symptoms: Normal affect, Normal mood - Skin Skin Temperature: Warm Skin Moisture: Dry Skin Color: Normal Course - Re-evaluation Re-evalutation: 04/28/18 22:15 Laboratory 04/28/18 04/28/18 04/28/18 19:36 19:36 19:36 WBC 6.6 RBC 4.03 L Hgb 12.7 L Hct 36.7 L MCV 91 MCH 31.5 MCHC 34.6 RDW 14.8 H Plt Count 159 Seg Neutrophils % 77.6 Lymphocytes % 14.5 Monocytes % 7.1 Eosinophils % 0.5 Basophils % 0.3 Absolute Neutrophils 5.1 Absolute Lymphocytes 1.0 Absolute Monocytes 0.5 Absolute Eosinophils 0.0 Absolute Basophils 0.0 PT 14.6 INR 1.08 APTT 33.1 Sodium 138.0 Potassium 5.0 Chloride 105 Carbon Dioxide 24 Anion Gap 9 BUN 23 H Creatinine 0.95 Est GFR ( Amer) > 60 Est GFR (Non-Af Amer) > 60 Glucose 137 H Calcium 9.4 Total Bilirubin 0.7 Direct Bilirubin 0.3 Neonat Total Bilirubin Not Reportable Neonat Direct Bilirubin Not Reportable Neonat Indirect Bili Not Reportable AST 28 ALT 13 L Alkaline Phosphatase 105 Total Protein 7.3 Albumin 4.2 Urine Color Urine Appearance Urine pH Ur Specific Universal Urine Protein Urine Glucose (UA) Urine Ketones Urine Blood Urine Nitrite Urine Bilirubin Urine Urobilinogen Ur Leukocyte Esterase Urine WBC (Auto) Urine RBC (Auto) Urine Bacteria (Auto) Urine WBC Clumps Squamous Epi Cells Auto Urine Mucus (Auto) Urine Ascorbic Acid 04/28/18 19:43 WBC RBC Hgb Hct MCV MCH MCHC RDW Plt Count Seg Neutrophils % Lymphocytes % Monocytes % Eosinophils % Basophils % Absolute Neutrophils Absolute Lymphocytes Absolute Monocytes Absolute Eosinophils Absolute Basophils PT INR APTT Sodium Potassium Chloride Carbon Dioxide Anion Gap BUN Creatinine Est GFR ( Amer) Est GFR (Non-Af Amer) Glucose Calcium Total Bilirubin Direct Bilirubin Neonat Total Bilirubin Neonat Direct Bilirubin Neonat Indirect Bili AST ALT Alkaline Phosphatase Total Protein Albumin Urine Color YELLOW Urine Appearance CLOUDY Urine pH 5.0 Ur Specific Universal 1.023 Urine Protein 30 H Urine Glucose (UA) NEGATIVE Urine Ketones NEGATIVE Urine Blood LARGE H Urine Nitrite NEGATIVE Urine Bilirubin NEGATIVE Urine Urobilinogen 2.0 H Ur Leukocyte Esterase LARGE H Urine WBC (Auto) 169 Urine RBC (Auto) >182 Urine Bacteria (Auto) 3+ Urine WBC Clumps MANY Squamous Epi Cells Auto <1 Urine Mucus (Auto) MOD Urine Ascorbic Acid NEGATIVE 04/28/18 22:16 CT scan unremarkable for any significant pathology other than some thickening of the bladder wall which would go along with patient's symptoms consistent with a hemorrhagic cystitis. IV antibiotics given. Fluids given. The rest of his labs look unremarkable. This time will treat with antibiotics. Should be stable for DC with outpatient treatment. Discussion had with family about his current treatment plan and they are in agreement with treating him. I did mention that if the hematuria continues that he may need to be seen by urologist to make sure that there are not any worsening issues such as bladder cancer or renal cell carcinoma. 04/28/18 22:19 Abdomen/Pelvis CT 04/28/18 19:08 IMPRESSION: 1. Motion degraded exam. Severe cardiomegaly with a small pericardial effusion. 2. No nephrolithiasis or hydronephrosis. 3. Mild diffuse circumferential thickening of the hale of the urinary bladder which may represent cystitis. Correlate with patient's urinalysis. - Vital Signs Vital signs: Temp Pulse Resp BP Pulse Ox 98.0 F 85 20 118/95 H 99 04/28/18 17:37 04/28/18 17:37 04/28/18 17:37 04/28/18 17:37 04/28/18 17:37 - Laboratory Result Diagrams: 04/28/18 19:36 04/28/18 19:36 Laboratory results interpreted by me: 04/28/18 04/28/18 04/28/18 19:36 19:36 19:43 RBC 4.03 L Hgb 12.7 L Hct 36.7 L RDW 14.8 H BUN 23 H Glucose 137 H ALT 13 L Urine Protein 30 H Urine Blood LARGE H Urine Urobilinogen 2.0 H Ur Leukocyte Esterase LARGE H Discharge - Discharge Clinical Impression: Hemorrhagic cystitis Condition: Good Disposition: HOME, SELF-CARE Instructions: Urinary Tract Infection ([facility]), Hematuria ([facility]) Prescriptions: Cephalexin Monohydrate [Keflex 500 mg Capsule] 500 mg PO Q6H 7 Days #28 capsule Referrals: RUFINO PATEL DO [Primary Care Provider] - Follow up as needed
--- NOTE | 2018-04-28 19:50 | RADIOLOGY REPORT (SQ) ---
EXAM DESCRIPTION: CT ABD/PELVIS NO ORAL OR IV COMPLETED DATE/TIME: 04/28/2018 7:32 pm REASON FOR STUDY: Flank pain and hematuria COMPARISON: Motion degraded exam. TECHNIQUE: CT scan of the abdomen and pelvis performed without intravenous or oral contrast. Images reviewed with lung, soft tissue, and bone windows. Reconstructed coronal and sagittal MPR images revi ewed. All images stored on PACS. All CT scanners at this facility use dose modulation, iterative reconstruction, and/or weight based d osing when appropriate to reduce radiation dose to as low as reasonably achievable (ALARA). [facility]: Dose Right [facility]: CareDose [facility]: Dose Right [facility]: Teradose 4D [facility]: Tealium RADIATION DOSE: CT Rad equipment meets quality standard of care and radiation dose reduction techniq ues were employed. CTDIvol: 7.6 mGy. DLP: 392 mGy-cm.mGy. LIMITATIONS: Motion degraded exam. FINDINGS: LOWER CHEST: Cardiomegaly with a small pericardial effusion, incompletely visualized. NON-CONTRASTED LIVER, SPLEEN, ADRENALS: Evaluation limited by lack of IV contrast. No identified sign ificant masses. PANCREAS: No masses. No peripancreatic inflammatory changes. GALLBLADDER: Not visualized RIGHT KIDNEY AND URETER: No suspicious masses. 3.5 x 3.3 cm cyst of the right kidney. Assessment li mited by lack of IV contrast. No significant calcifications. No hydronephrosis or hydroureter. LEFT KIDNEY AND URETER: No suspicious masses. Assessment limited by lack of IV contrast. No signifi cant calcifications. No hydronephrosis or hydroureter. AORTA AND RETROPERITONEUM: No aneurysm. 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 Scattered calcified plaque. No r etroperitoneal masses or adenopathy. BOWEL AND PERITONEAL CAVITY: No dilated loops of bowel. Moderate stool burden. No obvious masses o r inflammatory changes. No free fluid. APPENDIX: Not visualized. PELVIS, BLADDER, AND ABDOMINAL WALL:No abnormal masses. No free fluid. Mild diffuse thickening of th e hale of the urinary bladder measuring 1 cm. BONES: No significant findings. OTHER: Fat containing circumscribed lesion of the left gluteus igor muscle measuring 4.2 x 2.7 cm, likely representing a lipoma. Additional smaller fat containing lesion of the posterior right thora x also representing a lipoma. IMPRESSION: 1. Motion degraded exam. Severe cardiomegaly with a small pericardial effusion. 2. No nephrolithiasis or hydronephrosis. 3. Mild diffuse circumferential thickening of the hale of the urinary bladder which may represent cy stitis. Correlate with patient's urinalysis. COMMENT: Quality ID # [id number]: Final reports with documentation of one or more dose reduction techniques (e.g., Automated exposure control, adjustment of the mA and/or kV according to patient size, use of iterative reconstruction technique) TECHNICAL DOCUMENTATION: JOB ID: [id number] [email or web address]- All Rights Reserved Reading location - IP/workstation name: [email or web address]
[2018-04-28 19:59] LABS: ABSOLUTE MONOCYTES (AUTO) 0.5 10^3/uL (0.1-1.4); ABSOLUTE NEUT (AUTO) 5.1 10^3/uL (1.7-8.2); BASOPHILS % (AUTO) 0.3 % (0-2); EOSINOPHILS % (AUTO) 0.5 % (0-6); HEMATOCRIT 36.7 % (37.9-51.0); HEMOGLOBIN 12.7 g/dL (13.5-17.0); LYMPHOCYTES % (AUTO) 14.5 % (13-45); MEAN CORPUSCULAR HEMOGLOBIN 31.5 pg (27.0-33.4); MEAN CORPUSCULAR HGB CONC 34.6 g/dL (32.0-36.0); MEAN CORPUSCULAR VOLUME 91 fl (80-97); MONOCYTES % (AUTO) 7.1 % (3-13); PLATELET COUNT 159 10^3/uL (150-450); RED BLOOD COUNT 4.03 10^6/uL (4.35-5.55); RED CELL DISTRIBUTION WIDTH 14.8 % (11.5-14.0); SEGMENTED NEUTROPHILS % (AUTO) 77.6 % (42-78); TOTAL CELLS COUNTED % (AUTO) 100 %; WHITE BLOOD COUNT 6.6 10^3/uL (4.0-10.5)
[2018-04-28 20:03] LABS: APPEARANCE,URINE CLOUDY; BILIRUBIN,URINE NEGATIVE (NEGATIVE); COLOR,URINE YELLOW; GLUCOSE, URINE NEGATIVE (NEGATIVE); KETONES,URINE NEGATIVE (NEGATIVE); LEUKOCYTE ESTERASE,URINE LARGE (NEGATIVE); NITRITE,URINE NEGATIVE (NEGATIVE); PROTEIN,URINE 30 mg/dL (NEGATIVE); URINE SPECIFIC GRAVITY 1.023
[2018-04-28 20:05] LABS: INTERNATIONAL RATION (INR) 1.08; PARTIAL THROMBOPLASTIN TIME 33.1 SEC (23.5-35.8); PROTHROMBIN TIME 14.6 SEC (11.4-15.4)
[2018-04-28 20:10] LABS: ALANINE AMINOTRANSFERASE 13 U/L (21-72); ALBUMIN 4.2 g/dL (3.5-5.0); ALKALINE PHOSPHATASE 105 U/L (38-126); ANION GAP 9 (5-19); ASPARTATE AMINO TRANSFERASE 28 U/L (17-59); BILIRUBIN,DIRECT 0.3 mg/dL (0.0-0.4); BILIRUBIN,TOTAL 0.7 mg/dL (0.2-1.3); BLOOD UREA NITROGEN 23 mg/dL (7-20); CALCIUM 9.4 mg/dL (8.4-10.2); CARBON DIOXIDE 24 mmol/L (22-30); CHLORIDE 105 mmol/L (98-107); GLUCOSE 137 mg/dL (75-110); TOTAL PROTEIN 7.3 g/dL (6.3-8.2)
[2018-04-28] MEDS ORDERED: CEFTRIAXONE INJ 1000 MG VIAL IV ONE ×2 (20:57→22:09)
[2018-04-28] MEDS ORDERED: PHENAZOPYRIDINE HCL 200 MG TABLET PO ONE (20:57)
[2018-04-28 23:01] VITALS: BP 123/79
== END 2018-04-28 23:31 | disposition home or self-care (01) ==
LOC: ER 17:36
DX: N30.91 Cystitis, unspecified with hematuria (principal); R10.30 Lower abdominal pain, unspecified; F03.90 Unspecified dementia, unspecified severity, without behavioral disturbance, psychotic disturbance, mood disturbance, and anxiety; I10 Essential (primary) hypertension; Z88.8 Allergy status to other drugs, medicaments and biological substances
CPT/HCPCS: 99285; 96361; 51701; 96375; 96365; 36415; 87086; 85025; 85610; 85730; 87088; 80053; 81001; 87186; 74176; J1885; A9270; J0696; J7030; J3490

== ENCOUNTER 2018-07-12 11:50 | Observation (INO) | payer MEDICARE ==
[2018-07-12 12:11] LABS: ABSOLUTE EOSINOPHILS # (AUTO) 0.1 10^3/uL (0.0-0.6); ABSOLUTE LYMPHOCYTES (AUTO) 1.4 10^3/uL (0.5-4.7); ABSOLUTE MONOCYTES (AUTO) 0.3 10^3/uL (0.1-1.4); ABSOLUTE NEUT (AUTO) 0.8 10^3/uL (1.7-8.2); BASOPHILS % (AUTO) 1.5 % (0-2); EOSINOPHILS % (AUTO) 2.9 % (0-6); HEMATOCRIT 39.4 % (37.9-51.0); HEMOGLOBIN 13.5 g/dL (13.5-17.0); LYMPHOCYTES % (AUTO) 54.1 % (13-45); MEAN CORPUSCULAR HEMOGLOBIN 30.7 pg (27.0-33.4); MEAN CORPUSCULAR HGB CONC 34.2 g/dL (32.0-36.0); MEAN CORPUSCULAR VOLUME 90 fl (80-97); MONOCYTES % (AUTO) 10.8 % (3-13); PLATELET COUNT 227 10^3/uL (150-450); RED BLOOD COUNT 4.39 10^6/uL (4.35-5.55); RED CELL DISTRIBUTION WIDTH 15.6 % (11.5-14.0); SEGMENTED NEUTROPHILS % (AUTO) 30.7 % (42-78); TOTAL CELLS COUNTED % (AUTO) 100 %; WHITE BLOOD COUNT 2.5 10^3/uL (4.0-10.5)
--- NOTE | 2018-07-12 12:12 | ER Document Report ---
Addendum entered and electronically signed by JASMIN POSADAS NP 07/12/18 16:33: Course - Vital Signs Vital signs: Temp Pulse Resp BP Pulse Ox 97.8 F 73 19 132/80 H 100 07/12/18 11:59 07/12/18 12:00 07/12/18 15:00 07/12/18 13:01 07/12/18 12:04 - Laboratory Result Diagrams: 07/12/18 11:55 07/12/18 12:32 Laboratory results interpreted by me: 07/12/18 11:55 WBC 2.5 L RDW 15.6 H Seg Neutrophils % 30.7 L Lymphocytes % 54.1 H Absolute Neutrophils 0.8 L - EKG Interpretation by Me When compared to previous EKG there are: Other - Atrial fibrillation with ventricular rate of 88. No ST wave elevation or depression, no STEMI. No ischemic changes. No change from previous EKGs. Original Note: ED General - General Chief Complaint: Altered Mental Status Stated Complaint: AMS Time Seen by Provider: 07/12/18 11:59 Primary Care Provider: RUFINO PATEL DO [Primary Care Provider] - Follow up as needed Mode of Arrival: Medic Information source: Patient, Transfer Record, Emergency Med Personnel, Outside Facility Records Cannot obtain history due to: Dementia TRAVEL OUTSIDE OF THE [place] IN LAST 30 DAYS: No - HPI Patient complains to provider of: ALTERED Notes: Patient here from nursing facility with complaints of altered mental status. The patient has a history of dementia. Apparently the staff they are states that the patient has been acting "off". They cannot give any specific details as to what is different. According to the staff here, the patient is at his typical baseline when we have seen him in the past. He tends to be more agitated than he is today. Not really able to get any information from the patient as he has a history of dementia. He will occasionally follow commands, but is unable to have any sort of meaningful conversation. Unable to obtain a full history based on the patient's chronic altered mental status. - Related Data Allergies/Adverse Reactions: divalproex sodium [From Depakote] Allergy (Verified 04/28/18 19:02) Past Medical History - Social History Smoking Status: Unknown if Ever Smoked Family History: Reviewed & Not Pertinent - Past Medical History Cardiac Medical History: Reports: Hx Atrial Fibrillation, Hx Hypercholesterolemia, Hx Hypertension Neurological Medical History: Reports: Hx Seizures Renal/ Medical History: Denies: Hx Peritoneal Dialysis - Immunizations Hx Diphtheria, Pertussis, Tetanus Vaccination: - unknown Review of Systems - Review of Systems -: Yes ROS unobtainable due to patient's medical condition Physical Exam - Vital signs Vitals: Temp 97.8 F 07/12/18 11:59 - Notes Notes: GENERAL: alert, cooperative, nontoxic, no distress. HEAD: normocephalic, atraumatic EYES: conjunctiva pink without discharge, no external redness or swelling. EARS: no external swelling, no external redness NOSE: atraumatic, no external swelling MOUTH/THROAT: mucous membranes moist and pink, posterior pharynx without erythema, swelling, exudate. No trismus or drooling. NECK: soft, supple, full range of motion, no meningismus. CHEST: no distress, lungs clear and equal throughout. No wheezing, rales, rhonchi. CARDIAC: regular rate irregular rhythm, no murmur, normal capillary refill, normal pulses. No peripheral edema noted. ABDOMEN: Soft, nontender. BACK: full range of motion, no CVA tenderness. EXTREMITIES: full range of motion of all extremities. No redness, no swelling. NEURO: Patient is alert, but not oriented. This is his baseline due to dementia. Possible left-sided facial droop noted. Patient will not follow commands directly, therefore it is difficult to fully assess upper and lower extremity strength. He does have full range of motion and is using his left hand and will raise his left leg without significant difficulty., full range of motion of all extremities. PYSCH: appropriate mood, affect. Patient is cooperative. SKIN: pink, warm, dry, no rash. Course - Re-evaluation Re-evalutation: 07/12/18 13:33 Patient nontoxic-appearing with stable vitals. Patient here with family at the bedside now at this time. Apparently he is not acting right at the shelter. He has a history of dementia. Was noted to have some left-sided facial droop on exam with no other obvious focal neuro deficits. It is very difficult to do a complete neuro exam on this patient as he will not follow commands due to his baseline dementia. Remainder of his exam is unremarkable. He does have atrial fibrillation and is not anticoagulated. Rest of his exam is unremarkable, no sign of UTI. Initial head CT is negative. Not completely sure as to the onset of the patient's symptoms. This point the patient would not be a candidate for TPA. I discussed the case with Dr. Joselito Douglas who will evaluate the patient. Patient will be admitted to the hospital for concern for potential CVA. Patient is a full code. Family is agreeable to being admitted to the hospital. - Vital Signs Vital signs: Temp Pulse Resp BP Pulse Ox 97.8 F 21 H 138/94 H 96 07/12/18 11:59 07/12/18 12:00 07/12/18 12:00 07/12/18 12:00 - Laboratory Result Diagrams: 07/12/18 11:55 07/12/18 12:32 Laboratory results interpreted by me: 07/12/18 11:55 WBC 2.5 L RDW 15.6 H Seg Neutrophils % 30.7 L Lymphocytes % 54.1 H Absolute Neutrophils 0.8 L - Diagnostic Test Radiology reviewed: Image reviewed, Reports reviewed - Negative head CT, chest x-ray shows cardiomegaly without acute findings. Discharge - Discharge Clinical Impression: CVA (cerebral vascular accident) Qualifiers: CVA mechanism: unspecified Qualified Code(s): I63.9 - Cerebral infarction, unspecified Condition: Serious Disposition: ADMITTED INPATIENT Admitting Provider: Franco (Hospitalist) Unit Admitted: IMCU Referrals: RUFINO PATEL DO [Primary Care Provider] - Follow up as needed
--- NOTE | 2018-07-12 12:34 | RADIOLOGY REPORT (SQ) ---
EXAM DESCRIPTION: CT HEAD WITHOUT COMPLETED DATE/TIME: 07/12/2018 12:19 pm REASON FOR STUDY: AMS COMPARISON: 08/12/2016 TECHNIQUE: Axial images acquired through the brain without intravenous contrast. Images reviewed wi th bone, brain and subdural windows. Images stored on PACS. All CT scanners at this facility use dose modulation, iterative reconstruction, and/or weight based d osing when appropriate to reduce radiation dose to as low as reasonably achievable (ALARA). [facility]: Dose Right [facility]: CareDose [facility]: Dose Right [facility]: Teradose 4D [facility]: Smart Lexity RADIATION DOSE: CT Rad equipment meets quality standard of care and radiation dose reduction techniq ues were employed. CTDIvol: 53.2 mGy. DLP: 1097 mGy-cm. mGy. LIMITATIONS: None. FINDINGS: VENTRICLES: Age-appropriate. CEREBRUM: No masses. No hemorrhage. No midline shift. Areas of low density in the white matter mos t likely due to chronic micro-vascular ischemic change. No evidence for acute infarction. CEREBELLUM: No masses. No hemorrhage. No alteration of density. No evidence for acute infarction. EXTRAAXIAL SPACES: Mild age-related involutional change. No fluid collections. No masses. ORBITS AND GLOBE: No intra- or extraconal masses. Normal contour of globe without masses. CALVARIUM: No fracture. PARANASAL SINUSES: No fluid or mucosal thickening. SOFT TISSUES: No mass or hematoma. OTHER: No other significant finding. IMPRESSION: No acute intracranial findings. EVIDENCE OF ACUTE STROKE: NO. TECHNICAL DOCUMENTATION: JOB ID: [id number] Quality ID # [id number]: Final reports with documentation of one or more dose reduction techniques (e.g., Au tomated exposure control, adjustment of the mA and/or kV according to patient size, use of iterative reconstruction technique) 2010 [employer]- All Rights Reserved Reading location - IP/workstation name: [email or web address]
[2018-07-12 13:13] LABS: ALANINE AMINOTRANSFERASE 21 U/L (21-72); ALBUMIN 3.8 g/dL (3.5-5.0); ALKALINE PHOSPHATASE 78 U/L (38-126); ANION GAP 8 (5-19); ASPARTATE AMINO TRANSFERASE 27 U/L (17-59); BILIRUBIN,DIRECT 0.2 mg/dL (0.0-0.4); BILIRUBIN,TOTAL 0.8 mg/dL (0.2-1.3); BLOOD UREA NITROGEN 16 mg/dL (7-20); CALCIUM 9.9 mg/dL (8.4-10.2); CARBON DIOXIDE 26 mmol/L (22-30); CHLORIDE 106 mmol/L (98-107); GLUCOSE 95 mg/dL (75-110); POTASSIUM 4.4 mmol/L (3.6-5.0); SODIUM 139.8 mmol/L (137-145)
[2018-07-12 13:16] LABS: APPEARANCE,URINE CLEAR; BILIRUBIN,URINE NEGATIVE (NEGATIVE); COLOR,URINE YELLOW; GLUCOSE, URINE NEGATIVE (NEGATIVE); KETONES,URINE NEGATIVE (NEGATIVE); LEUKOCYTE ESTERASE,URINE NEGATIVE (NEGATIVE); NITRITE,URINE NEGATIVE (NEGATIVE); PROTEIN,URINE NEGATIVE (NEGATIVE); URINE SPECIFIC GRAVITY 1.021; UROBILINOGEN,URINE NEGATIVE mg/dL (<2.0)
--- NOTE | 2018-07-12 13:20 | RADIOLOGY REPORT (SQ) ---
EXAM DESCRIPTION: CHEST SINGLE VIEW COMPLETED DATE/TIME: 07/12/2018 12:45 pm REASON FOR STUDY: altered mental status COMPARISON: Chest x-ray 01/30/2017, CT abdomen and pelvis 04/28/2018 EXAM PARAMETERS: NUMBER OF VIEWS: One view. TECHNIQUE: Single frontal radiographic view of the chest acquired. RADIATION DOSE: NA LIMITATIONS: None. FINDINGS: LUNGS AND PLEURA: No consolidation, pneumothorax or pleural effusion. MEDIASTINUM AND HILAR STRUCTURES: No masses. Contour normal. HEART AND VASCULAR STRUCTURES: The heart remains enlarged. There is no overt vascular congestion. BONES: No acute findings. HARDWARE: None in the chest. IMPRESSION: Cardiomegaly. Otherwise, no acute radiographic finding in the chest. TECHNICAL DOCUMENTATION: JOB ID: [id number] 2010 [employer]- All Rights Reserved Reading location - IP/workstation name: [email or web address]
[2018-07-12] MEDS ORDERED: NORMAL SALINE 1000 ML 500 ML IV ONE (13:22)
--- NOTE | 2018-07-12 13:47 | ER Document Report ---
Doctor's Note Notes: I personally and independently obtained patient history and examined the patient in conjunction with the APC and agree with the assessment, treatment plan and disposition of the patient as recorded by the APC, and have reviewed the APC's note. HISTORY OF PRESENT ILLNESS: Patient is a 72-year-old male, with dementia that presents to the emergency department for chief complaint of left facial droop and altered status. Patient reportedly was noticed to have a left sided facial droop this morning around 11:00, it is unclear when this actually started. Patient is a poor historian due to his dementia. Per his family he seems to be at around his baseline when he comes to his mental status. ROS: Constitutional: Negative for fever. Cardiovascular: Negative for chest pain. Respiratory: Negative for shortness of breath. Gastrointestinal: Negative for vomiting or abdominal pain Musculoskeletal: Negative for arm, leg or back pain Skin: Negative for rash. Neurological: Positive for facial droop. Other than noted above, the 12 point review of systems was reviewed with the patient and were negative, all pertinent findings are included in the HPI. PHYSICAL EXAMINATION: Vital signs reviewed, nursing noted reviewed. GENERAL: Elderly male, no acute distress HEAD: Atraumatic, normocephalic. EYES: Eyes appear normal, conjunctiva are normal. ENT: nares patent, oropharynx clear without exudates. Moist mucous membranes. NECK: Normal range of motion, supple without lymphadenopathy LUNGS: Breath sounds clear to auscultation bilaterally and equal. No wheezes rales or rhonchi. HEART: Heart rate irregular rhythm, rate normal. ABDOMEN: Soft, nontender, normoactive bowel sounds. No rebound, guarding, or r igidity. No masses appreciated. EXTREMITIES: Nontender, good range of motion, no pitting or edema. NEUROLOGICAL: Mild left-sided facial droop noted, no significant dysarthria, patient moving all extremities without difficulty, sensation appears to be grossly intact distally in all extremities. Alert and oriented x2, at baseline. PSYCH: Normal mood, normal affect. SKIN: Warm, Dry, normal turgor, no rashes or lesions noted on exposed skin MEDICAL DECISION MAKING: Patient seen and examined, vital signs reviewed, patient does have a slight facial droop on the left, but otherwise does not seem to have any significant neurological deficits, is unclear when the patient's symptoms started, and is therefore not a TPA candidate, for both minor symptoms, and out of the window. Would recommend admitting the patient for CVA evaluation and work-up, patient was accepted to the hospitalist service. Please review detail APC documentation. *Note is created using voice recognition software and may contain spelling, syntax or grammatical errors. Laboratory 07/12/18 07/12/18 07/12/18 11:55 11:55 12:32 WBC 2.5 L RBC 4.39 Hgb 13.5 Hct 39.4 MCV 90 MCH 30.7 MCHC 34.2 RDW 15.6 H Plt Count 227 Seg Neutrophils % 30.7 L Lymphocytes % 54.1 H Monocytes % 10.8 Eosinophils % 2.9 Basophils % 1.5 Absolute Neutrophils 0.8 L Absolute Lymphocytes 1.4 Absolute Monocytes 0.3 Absolute Eosinophils 0.1 Absolute Basophils 0.0 Sodium Cancelled 139.8 Potassium Cancelled 4.4 Chloride Cancelled 106 Carbon Dioxide Cancelled 26 Anion Gap Cancelled 8 BUN Cancelled 16 Creatinine Cancelled 0.89 Est GFR ( Amer) Cancelled > 60 Est GFR (Non-Af Amer) Cancelled > 60 Glucose Cancelled 95 Calcium Cancelled 9.9 Total Bilirubin Cancelled 0.8 Direct Bilirubin Cancelled 0.2 Neonat Total Bilirubin Cancelled Not Reportable Neonat Direct Bilirubin Cancelled Not Reportable Neonat Indirect Bili Cancelled Not Reportable AST Cancelled 27 ALT Cancelled 21 Alkaline Phosphatase Cancelled 78 Total Protein Cancelled 7.0 Albumin Cancelled 3.8 Urine Color Urine Appearance Urine pH Ur Specific [place] Urine Protein Urine Glucose (UA) Urine Ketones Urine Blood Urine Nitrite Urine Bilirubin Urine Urobilinogen Ur Leukocyte Esterase Urine WBC (Auto) Urine RBC (Auto) U Hyaline Cast (Auto) Urine Mucus (Auto) Urine Ascorbic Acid 07/12/18 12:50 WBC RBC Hgb Hct MCV MCH MCHC RDW Plt Count Seg Neutrophils % Lymphocytes % Monocytes % Eosinophils % Basophils % Absolute Neutrophils Absolute Lymphocytes Absolute Monocytes Absolute Eosinophils Absolute Basophils Sodium Potassium Chloride Carbon Dioxide Anion Gap BUN Creatinine Est GFR ( Amer) Est GFR (Non-Af Amer) Glucose Calcium Total Bilirubin Direct Bilirubin Neonat Total Bilirubin Neonat Direct Bilirubin Neonat Indirect Bili AST ALT Alkaline Phosphatase Total Protein Albumin Urine Color YELLOW Urine Appearance CLEAR Urine pH 7.0 Ur Specific [place] 1.021 Urine Protein NEGATIVE Urine Glucose (UA) NEGATIVE Urine Ketones NEGATIVE Urine Blood NEGATIVE Urine Nitrite NEGATIVE Urine Bilirubin NEGATIVE Urine Urobilinogen NEGATIVE Ur Leukocyte Esterase NEGATIVE Urine WBC (Auto) 0 Urine RBC (Auto) 1 U Hyaline Cast (Auto) 1 Urine Mucus (Auto) RARE Urine Ascorbic Acid NEGATIVE Chest X-Ray 07/12/18 11:59 IMPRESSION: Cardiomegaly. Otherwise, no acute radiographic finding in the chest. Head CT 07/12/18 12:00 IMPRESSION: No acute intracranial findings. EVIDENCE OF ACUTE STROKE: NO.
[2018-07-12 13:52] LABS: INTERNATIONAL RATION (INR) 1.05; PARTIAL THROMBOPLASTIN TIME 34.2 SEC (23.5-35.8); PROTHROMBIN TIME 14.2 SEC (11.4-15.4)
[2018-07-12] MEDS ORDERED: IPRATROPIUM/ALBUTEROL 0.5-2.5 MG/3 ML AMPUL NEB PRN (15:46)
[2018-07-12] MEDS ORDERED: NORMAL SALINE 1000 ML 1,000 ML IV PRN (15:46)
[2018-07-12] MEDS ORDERED: ACETAMINOPHEN 325 MG TABLET PO PRN (15:46)
[2018-07-12] MEDS ORDERED: ONDANSETRON 4 MG TAB.RAPDIS PO PRN (15:46)
[2018-07-12] MEDS ORDERED: PROMETHAZINE HCL INJ 25 MG/1 ML VIAL IV PRN (15:46)
--- NOTE | 2018-07-12 16:22 | PDOC H&P ---
History of Present Illness Admission Date/PCP: 07/12/18 14:20 RUFINO PATEL DO History of Present Illness: JOSUÉ DIAZ is a 72 year old male long-term resident, past medical history of advanced dementia, osteoarthritis, hyperlipidemia, CVA, hypertension, was sent to ED for evaluation of left facial droop. He was reportedly noticed to have left-sided facial droop this morning around 11 AM time of onset unknown. Unfortunately patient has severe dementia who is awake and alert, does not follow any commands, which is his baseline per Hanh Diaz her daughter who als has POA. As per daughter who is at the bedside patient is complaing of left lower quadrant abdominal pain, otherwise he is at baseline his baseline apart from his new onset left facial droop. Patient does not seem to be in any acute distress, he has mild left facial droop but unfortunately patient does not follow any command and it is not possible to do a proper neurological evaluation. By observation all other cranial nerves are intact and patient is moving all his extremities. Patient did not receive TPA as he was outside of window period. In ED his vitals were within normal limits, WBC 2.5, hemoglobin 13.5, platelets 225, PT/INR within normal limits, CMP within normal limits, urinalysis negative. CT head was negative for any acute stroke. Notes. Patient's daughter Ms. Hanh Diaz who has POA and can be reached at [phone] want to be called before patient is discharged. Past Medical History Cardiac Medical History: Reports: Atrial Fibrillation, Hyperlipidema, Hypertension Neurological Medical History: Reports: Seizures Social History Smoking Status: Unknown if Ever Smoked Family History Family History: Reviewed & Not Pertinent Parental Family History Reviewed: Yes Children Family History Reviewed: Yes Sibling(s) Family History Reviewed.: Yes Medication/Allergy Home Medications: Acetaminophen [Tylenol 325 mg Tablet] 650 mg PO Q6HP PRN 07/12/18 Carvedilol [Coreg 3.125 mg Tablet] 3.125 mg PO Q12 07/12/18 Cholecalciferol (Vitamin D3) [Vitamin D] 50,000 unit PO Q7D 07/12/18 Cold Cream/Zinc Oxide/Star/Arturo [Dermacloud Ointment] 1 applic TP ASDIR PRN 07/12/18 Diltiazem HCl [Diltiazem ER] 300 mg PO DAILY 07/12/18 Donepezil HCl [Aricept 5 mg Tablet] 5 mg PO QHS 07/12/18 Eyelid Cleanser Combination 5 [Ocusoft Lid Scrub] 1 each TP BID 07/12/18 Guaifenesin [Mucus-Chest Congestion] 10 ml PO Q4HP PRN 07/12/18 Lidocaine [Lidoderm 5% (700 mg) Transdermal Patch] 1 patch TP DAILY 07/12/18 Magnesium Hydroxide [Milk of Magnesia 30 ml Udcup] 30 ml PO ASDIR PRN 07/12/18 Neomycin/Bacitracin/Polymyxinb [Triple Antibiotic Ointment] 1 each TP ASDIR PRN 07/12/18 Pantoprazole Sodium [Protonix [address] Tablet] 40 mg PO DAILY 07/12/18 Pravastatin Sodium [Pravachol] 20 mg PO DAILY 07/12/18 Quetiapine Fumarate [Seroquel 25 mg Tablet] 12.5 mg PO BID 07/12/18 Quetiapine Fumarate [Seroquel 25 mg Tablet] 25 mg PO Q4HP PRN 07/12/18 Quetiapine Fumarate [Seroquel] 50 mg PO QHS 07/12/18 Allergies/Adverse Reactions: divalproex sodium [From Depakote] Allergy (Verified 04/28/18 19:02) Review of Systems ROS unobtainable: Due to mental status Physical Exam Vital Signs: Temp Pulse Resp BP Pulse Ox 97.8 F 73 19 132/80 H 100 07/12/18 11:59 07/12/18 12:00 07/12/18 15:00 07/12/18 13:01 07/12/18 12:04 Intake & Output 07/11/18 07/12/18 07/13/18 06:59 06:59 06:59 Intake Total 500 Balance 500 Weight 65 kg General appearance: PRESENT: no acute distress, well-developed, well-nourished Head exam: PRESENT: atraumatic, normocephalic Neck exam: ABSENT: carotid bruit, JVD, lymphadenopathy, thyromegaly Respiratory exam: PRESENT: clear to auscultation ashlee. ABSENT: rales, rhonchi, wheezes Cardiovascular exam: PRESENT: RRR. ABSENT: diastolic murmur, rubs, systolic murmur GI/Abdominal exam: PRESENT: normal bowel sounds, soft. ABSENT: distended, guarding, mass, organolmegaly, rebound, tenderness Extremities exam: PRESENT: full ROM. ABSENT: calf tenderness, clubbing, pedal edema Neurological exam: PRESENT: alert, altered, other - Unable to do proper neurological examination due to patient's advanced dementia. Results Laboratory Results: 07/12/18 11:55 07/12/18 12:32 07/12/18 07/12/18 07/12/18 11:55 11:55 12:32 WBC 2.5 L RBC 4.39 Hgb 13.5 Hct 39.4 MCV 90 MCH 30.7 MCHC 34.2 RDW 15.6 H Plt Count 227 Seg Neutrophils % 30.7 L Lymphocytes % 54.1 H Monocytes % 10.8 Eosinophils % 2.9 Basophils % 1.5 Absolute Neutrophils 0.8 L Absolute Lymphocytes 1.4 Absolute Monocytes 0.3 Absolute Eosinophils 0.1 Absolute Basophils 0.0 Sodium Cancelled 139.8 Potassium Cancelled 4.4 Chloride Cancelled 106 Carbon Dioxide Cancelled 26 Anion Gap Cancelled 8 BUN Cancelled 16 Creatinine Cancelled 0.89 Est GFR ( Amer) Cancelled > 60 Est GFR (Non-Af Amer) Cancelled > 60 Glucose Cancelled 95 Calcium Cancelled 9.9 Total Bilirubin Cancelled 0.8 AST Cancelled 27 ALT Cancelled 21 Alkaline Phosphatase Cancelled 78 Total Protein Cancelled 7.0 Albumin Cancelled 3.8 Urine Color Urine Appearance Urine pH Ur Specific [place] Urine Protein Urine Glucose (UA) Urine Ketones Urine Blood Urine Nitrite Ur Leukocyte Esterase Urine WBC (Auto) Urine RBC (Auto) 07/12/18 12:50 WBC RBC Hgb Hct MCV MCH MCHC RDW Plt Count Seg Neutrophils % Lymphocytes % Monocytes % Eosinophils % Basophils % Absolute Neutrophils Absolute Lymphocytes Absolute Monocytes Absolute Eosinophils Absolute Basophils Sodium Potassium Chloride Carbon Dioxide Anion Gap BUN Creatinine Est GFR ( Amer) Est GFR (Non-Af Amer) Glucose Calcium Total Bilirubin AST ALT Alkaline Phosphatase Total Protein Albumin Urine Color YELLOW Urine Appearance CLEAR Urine pH 7.0 Ur Specific [place] 1.021 Urine Protein NEGATIVE Urine Glucose (UA) NEGATIVE Urine Ketones NEGATIVE Urine Blood NEGATIVE Urine Nitrite NEGATIVE Ur Leukocyte Esterase NEGATIVE Urine WBC (Auto) 0 Urine RBC (Auto) 1 Impressions: Chest X-Ray 07/12/18 11:59 IMPRESSION: Cardiomegaly. Otherwise, no acute radiographic finding in the chest. Head CT 07/12/18 12:00 IMPRESSION: No acute intracranial findings. EVIDENCE OF ACUTE STROKE: NO. Assessment and Plan - Diagnosis (1) CVA (cerebral vascular accident) Qualifiers: CVA mechanism: unspecified Qualified Code(s): I63.9 - Cerebral infarction, unspecified Is this a current diagnosis for this admission?: Yes Plan: TPA candidate. CT head negative. Persistent left facial droop. Met to IMCU, MRI/MRA head, carotid Doppler. High intensity statins, aspirin. Optimize blood pressure. PT/OT/ST. (2) Hypertension Is this a current diagnosis for this admission?: No Plan: Euvolemic normotensive. Start home meds as appropriate. Adjust meds as needed. (3) Hyperlipidemia Is this a current diagnosis for this admission?: No Plan: No baseline lipid panel available. Will order lipid panel. Continue high intensity statins. Follow-up with PCP for evaluation of LFTs. (4) Dementia Is this a current diagnosis for this admission?: No Plan: Likely vascular dementia. Start home meds. (5) History of CVA (cerebrovascular accident) Is this a current diagnosis for this admission?: No Plan: Optimize blood pressure, continue aspirin and statins. (6) Abdominal pain Qualifiers: Abdominal location: left lower quadrant Qualified Code(s): R10.32 - Left lower quadrant pain Is this a current diagnosis for this admission?: Yes Plan: Reported by daughter as severe abdominal pain. Unfortunately patient has advanced dementia and does not communicate any abdominal pain. On physical examination, normal bowel sounds, no TTP, rebound, or rigidity. We will do a CT abdomen. CT abdomen. Supportive measures.
--- NOTE | 2018-07-12 16:59 | RADIOLOGY REPORT (SQ) ---
EXAM DESCRIPTION: CT ABD/PELVIS NO ORAL OR IV COMPLETED DATE/TIME: 07/12/2018 4:43 pm REASON FOR STUDY: LLQ Abdominal pain COMPARISON: CT abdomen pelvis 04/28/2018 TECHNIQUE: CT scan of the abdomen and pelvis performed without intravenous or oral contrast. Images reviewed with lung, soft tissue, and bone windows. Reconstructed coronal and sagittal MPR images revi ewed. All images stored on PACS. All CT scanners at this facility use dose modulation, iterative reconstruction, and/or weight based d osing when appropriate to reduce radiation dose to as low as reasonably achievable (ALARA). [facility]: Dose Right [facility]: CareDose [facility]: Dose Right [facility]: Teradose 4D [facility]: Maaguzi RADIATION DOSE: CT Rad equipment meets quality standard of care and radiation dose reduction techniq ues were employed. CTDIvol: 7.7 mGy. DLP: 404 mGy-cm.mGy. LIMITATIONS: No oral or IV contrast FINDINGS: LOWER CHEST: There is massive enlargement of the left atrium, cardiomegaly, with trace per icardial effusion similar compared to 04/28/2018. No focal infiltrates. No pleural effusion NON-CONTRASTED LIVER, SPLEEN, ADRENALS: Evaluation limited by lack of IV contrast. No identified sign ificant masses. PANCREAS: No masses. No peripancreatic inflammatory changes. GALLBLADDER: No identified stones by CT criteria. No inflammatory changes to suggest cholecystitis. RIGHT KIDNEY AND URETER: No suspicious masses. Assessment limited by lack of IV contrast. 3.5 cm cys t right mid-pole kidney. Few tiny intrarenal nonobstructive calcifications in the right renal calice s No hydronephrosis or hydroureter. LEFT KIDNEY AND URETER: No suspicious masses. Assessment limited by lack of IV contrast. Few tiny i ntrarenal nonobstructive calcifications in the left renal calices No hydronephrosis or hydroureter. AORTA AND RETROPERITONEUM: No aneurysm. No retroperitoneal masses or adenopathy. BOWEL AND PERITONEAL CAVITY: No obvious masses or inflammatory changes. No free fluid. APPENDIX: Normal. PELVIS, BLADDER, AND ABDOMINAL WALL:No abnormal masses. No free fluid. Bladder normal. BONES: No significant findings. OTHER: No other significant finding. IMPRESSION: NO SIGNIFICANT OR ACUTE PROCESS IN THE ABDOMEN OR PELVIS. COMMENT: Quality ID # [id number]: Final reports with documentation of one or more dose reduction techniques (e.g., Automated exposure control, adjustment of the mA and/or kV according to patient size, use of iterative reconstruction technique) TECHNICAL DOCUMENTATION: JOB ID: [id number] [employer]- All Rights Reserved Reading location - IP/workstation name: [email or web address]
[2018-07-12 17:10] LABS: TRIGLYCERIDES 50 mg/dL (<150)
[2018-07-12 17:21] LABS: DIRECT LDL 67 mg/dL (<100)
[2018-07-12] MEDS: ASPIRIN 81 MG TABLET, CHEWABLE PO SCH (18:39)
[2018-07-12] MEDS ORDERED: (PENDING PHARMACY ID) (Quetiapine Fumarate [Seroquel] 50 MG) PO SCH (22:00)
[2018-07-12] MEDS ORDERED: ATORVASTATIN CALCIUM 40 MG TABLET PO SCH (22:00)
--- NOTE | 2018-07-12 22:35 | EKG REPORT ---
SEVERITY:- ABNORMAL ECG - ATRIAL FIBRILLATION LEFT AXIS DEVIATION : Confirmed by: Char Nguyen MD 12-Jul-2018 22:34:46
--- NOTE | 2018-07-12 22:35 | EKG REPORT ---
SEVERITY:- ABNORMAL ECG - ATRIAL FIBRILLATION, V-RATE 70-102 LVH BY VOLTAGE : Confirmed by: Char Nguyen MD 12-Jul-2018 22:34:54
[2018-07-12] MEDS: CARVEDILOL 3.125 MG TABLET PO SCH (22:57)
[2018-07-12] MEDS: QUETIAPINE FUMARATE 25 MG TABLET PO SCH (22:57)
[2018-07-12] MEDS: FAMOTIDINE 20 MG TABLET PO SCH (22:57)
[2018-07-12] MEDS: DONEPEZIL HCL 5 MG TABLET PO SCH (22:57)
[2018-07-12] MEDS: HEPARIN SOD (PORCINE) 5,000 UNIT/ML 1 ML SYRINGE SUBCUT SCH (22:58)
[2018-07-13] MEDS: HEPARIN SOD (PORCINE) 5,000 UNIT/ML 1 ML SYRINGE SUBCUT SCH ×3 (05:44→21:41)
--- NOTE | 2018-07-13 08:30 | RADIOLOGY REPORT (SQ) ---
EXAM DESCRIPTION: CAROTID DOPPLER COMPLETED DATE/TIME: 07/12/2018 8:00 pm REASON FOR STUDY: CVA COMPARISON: None. TECHNIQUE: Grayscale ultrasound, Doppler velocity and spectra, and color Doppler images acquired of the extra-cranial carotid and vertebral arteries. Images stored on PACS. LIMITATIONS: Sonography per notes limited study, significant cooperation issues. FINDINGS: RIGHT CAROTID CCA Velocities: Within normal limits. ICA Velocities Peak systolic 0.54 m/s. End diastolic 0.09 m/s. Proximal ICA/CCA peak systolic ratio when 8. Mild plaque. No significant luminal narrowing. LEFT CAROTID CCA Velocities: Within normal limits. ICA Velocities Peak systolic 0.69 m/s. End diastolic 0.12 m/s. Proximal ICA/CCA peak systolic ratio 1.2. Mild plaque. No significant luminal narrowing. VERTEBRAL ARTERIES: Antegrade flow. Normal waveforms. SUBCLAVIAN ARTERIES: No finding. OTHER: No other significant finding. IMPRESSION: NO HEMODYNAMICALLY SIGNIFICANT STENOSIS. COMMENT: Quality ID #[id number]: Velocity criteria are extrapolated from the diameter data as defined by t he Society of Radiologists in Ultrasound Consensus Conference. Radiology 2003: 229; 340-346. TECHNICAL DOCUMENTATION: JOB ID: [id number] [employer]- All Rights Reserved Reading location - IP/workstation name: [email or web address]
[2018-07-13] MEDS: ASPIRIN 81 MG TABLET, CHEWABLE PO SCH (10:01)
[2018-07-13] MEDS: CARVEDILOL 3.125 MG TABLET PO SCH ×2 (10:02→21:40)
[2018-07-13] MEDS: DOCUSATE SODIUM 100 MG/10 ML UDC PO SCH (10:02)
[2018-07-13] MEDS: FAMOTIDINE 20 MG TABLET PO SCH ×2 (10:02→21:41)
[2018-07-13] MEDS ORDERED: LORAZEPAM INJ 2 MG/1 ML VIAL IV PRN (11:44)
[2018-07-13] MEDS ORDERED: HALOPERIDOL LACTATE INJ 5 MG/1 ML VIAL IV ONE (12:00)
--- NOTE | 2018-07-13 12:41 | PDOC PROGRESS REPORT ---
Subjective Progress Note for:: 07/13/18 Subjective:: This is a 72 year old male senior care resident with a past medical history of advanced dementia, osteoarthritis, hyperlipidemia, prior CVA, hypertension, and history of paroxysmal AFib, not on anticogagulation who was sent to ED from the senior care for evaluation of an acute left facial droop. CT head was negative. He was not a TPA candidate. No acute event overnight. He has left facial droop. He is responsive but not coherent nor oriented from his dementia. Discussed with son on bedside and Master who has requested pursuing the MRI. Discussed this was cancelled yesterday as he is not able to cooperate. Family request him to be sedated. Discussed benefits and risks. Also discussed why he is not on anticoagulation for his history of AFIb and apparently he has high risks of fall and family prefers for him not to be on anticoagulation. Addendum 7PM: Discussed echo results with Dr. Pruitt. Echo showed possible old vegetation vs ruptured chordae with mitral regurgitation. Patient is awake and appears comfortable. Blood pressures stable and HR WNL. No signs of cardiogenic shock. Discussed with law firm consultant digital analytics manager at [facility], Dr. Slater that this is likely not a new or acute MR as patient does not appear to be in cardiogenic shock. He recommends outpatient evaluation for possible SALAZAR if warranted. He will see the patient in his clinic on Sunday if he gets discharged in the next 24-48 hrs. Reason For Visit: CVA(CEREBRAL VASCULAR ACCIDENT),AMS Physical Exam Vital Signs: Temp Pulse Resp BP Pulse Ox 97.4 F 81 16 142/89 H 96 07/13/18 11:49 07/13/18 12:00 07/13/18 12:00 07/13/18 12:00 07/13/18 12:00 Intake & Output 07/12/18 07/13/18 07/14/18 06:59 06:59 06:59 Intake Total 671 50 Balance 671 50 Weight 142 lb 3.17 oz General appearance: PRESENT: no acute distress, well-developed, well-nourished Head exam: PRESENT: atraumatic, normocephalic Eye exam: PRESENT: conjunctiva pink, EOMI, PERRLA. ABSENT: scleral icterus Ear exam: PRESENT: normal external ear exam Neck exam: ABSENT: carotid bruit, JVD, lymphadenopathy, thyromegaly Respiratory exam: PRESENT: clear to auscultation ashlee. ABSENT: rales, rhonchi, wheezes Cardiovascular exam: PRESENT: RRR. ABSENT: diastolic murmur, rubs, systolic murmur Pulses: PRESENT: normal dorsalis pedis pul GI/Abdominal exam: PRESENT: normal bowel sounds, soft. ABSENT: distended, guarding, mass, organolmegaly, rebound, tenderness Rectal exam: PRESENT: deferred Neurological exam: PRESENT: alert, awake. ABSENT: oriented to person, oriented to place, oriented to time, oriented to situation, CN II-XII grossly intact - left facial droop Results Laboratory Results: 07/12/18 11:55 07/12/18 12:32 07/12/18 07/12/18 07/12/18 12:32 12:32 12:32 Sodium 139.8 Potassium 4.4 Chloride 106 Carbon Dioxide 26 Anion Gap 8 BUN 16 Creatinine 0.89 Est GFR ( Amer) > 60 Est GFR (Non-Af Amer) > 60 Glucose 95 Calcium 9.9 Total Bilirubin 0.8 AST 27 ALT 21 Alkaline Phosphatase 78 Total Protein 7.0 Albumin 3.8 Triglycerides 50 Cholesterol 156.30 LDL Cholesterol Direct 67 VLDL Cholesterol 10.0 HDL Cholesterol 75 TSH 0.69 Urine Color Urine Appearance Urine pH Ur Specific [place] Urine Protein Urine Glucose (UA) Urine Ketones Urine Blood Urine Nitrite Ur Leukocyte Esterase Urine WBC (Auto) Urine RBC (Auto) 07/12/18 12:50 Sodium Potassium Chloride Carbon Dioxide Anion Gap BUN Creatinine Est GFR ( Amer) Est GFR (Non-Af Amer) Glucose Calcium Total Bilirubin AST ALT Alkaline Phosphatase Total Protein Albumin Triglycerides Cholesterol LDL Cholesterol Direct VLDL Cholesterol HDL Cholesterol TSH Urine Color YELLOW Urine Appearance CLEAR Urine pH 7.0 Ur Specific [place] 1.021 Urine Protein NEGATIVE Urine Glucose (UA) NEGATIVE Urine Ketones NEGATIVE Urine Blood NEGATIVE Urine Nitrite NEGATIVE Ur Leukocyte Esterase NEGATIVE Urine WBC (Auto) 0 Urine RBC (Auto) 1 Impressions: Abdomen/Pelvis CT 07/12/18 00:00 IMPRESSION: NO SIGNIFICANT OR ACUTE PROCESS IN THE ABDOMEN OR PELVIS. Carotid Doppler Study 07/12/18 00:00 IMPRESSION: NO HEMODYNAMICALLY SIGNIFICANT STENOSIS. Chest X-Ray 07/12/18 11:59 IMPRESSION: Cardiomegaly. Otherwise, no acute radiographic finding in the chest. Head CT 07/12/18 12:00 IMPRESSION: No acute intracranial findings. EVIDENCE OF ACUTE STROKE: NO. Assessment and Plan - Diagnosis (1) CVA (cerebral vascular accident) Qualifiers: CVA mechanism: unspecified Qualified Code(s): I63.9 - Cerebral infarction, unspecified Is this a current diagnosis for this admission?: Yes Plan: Will pursue MRI and give him minimal Haldol or Ativan as needed. Aspirin and statin added. (2) Dementia Is this a current diagnosis for this admission?: Yes Plan: At baseline. (3) Hypertension Is this a current diagnosis for this admission?: Yes Plan: Resume cardizem. - Time Time Spent with patient: 25-34 minutes
--- NOTE | 2018-07-13 13:40 | RADIOLOGY REPORT (SQ) ---
EXAM DESCRIPTION: MRI HEAD WITHOUT COMPLETED DATE/TIME: 07/13/2018 1:06 pm REASON FOR STUDY: facial droop I34.8 OTHER NONRHEUMATIC MITRAL VALVE DISORDERS COMPARISON: CT from yesterday. TECHNIQUE: Multiplanar imaging includes non-contrasted T1, T2, FLAIR, and diffusion with ADC map seq uences. Images stored on PACS. LIMITATIONS: Motion artifact is present on most of the sequences. This mildly limits. FINDINGS: ANATOMY: No anomalies. Normal vascular flow voids. Pituitary fossa normal. CSF SPACES: Atrophy induced prominence of ventricles and CSF spaces. CEREBRUM: High signal intensity lesions scattered throughout the white matter on FLAIR imaging with d istribution suggesting micro-vascular ischemic changes. No evidence of hemorrhage, mass, or extraaxi al fluid collection. POSTERIOR FOSSA: Mild fluid in the right mastoid air cells. Posterior fossa structures otherwise int act. DIFFUSION IMAGING: Negative for acute or sub-acute infarction. ORBITS: No masses. Globes normal. PARANASAL SINUSES: No fluid levels. Mucosa normal. OTHER: No other significant finding. IMPRESSION: 1. Mild right mastoid effusion. 2. Mild atrophy and small vessel change, chronic disease. 3. No acute abnormality. No recent CVA appreciated. 4. Limiting motion. EVIDENCE OF ACUTE STROKE: NO. TECHNICAL DOCUMENTATION: JOB ID: [id number] [employer]- All Rights Reserved Reading location - IP/workstation name: [email or web address]
--- NOTE | 2018-07-13 17:20 | XCELERA REPORT ---
[address] [address] Transthoracic Echocardiogram Report Name: JOSUÉ DIAZ Age: 72 yrs Gender: Male : 1945 Patient Status: Inpatient Patient Location: [address] [place], [place] [address] Study Date: 07/13/2018 03:56 PM Height: 70 in Weight: 142 lb BSA: 1.8 m2 Reason For Study: massive LA dilatation, acute CVA Ordering Physician: MANDY MORE Performed By: Alyssia Joe Interpretation Summary Study quality fair. Mild concentric LVH with normal LVEF visually estimated at 60-65%. The right ventricular systolic function is mildly reduced. The left atrium is severely dilated. The interatrial septum bows toward right atrium consistent with elevated left atrial pressure. There is a mild to moderate amount of aortic regurgitation Focal thickening of MV leaflets noted with echodensity attached to posterior MV leaflet that could represent ruptured chordae/ old vegetation. Color doppler suggestive of moderate to severe mitral regurgitation ( suspect severe MR). Recommend SALAZAR for better evaluation of mitral valve pathology. There is a moderate to severe amount of tricuspid regurgitation Small to moderate pericardial effusion noted ( moderate adjacent ot RA and RV) IVC dilated with normal respiratory variation- estimated mean RA pressure at 8 mm Hg. The aortic root is mildly dilated at 3.9 cms MMode/2D Measurements & Calculations RVDd: 3.0 cm LVIDd: 4.7 cm FS: 35.3 % Ao root diam: 3.9 cm IVSd: 1.3 cm LVIDs: 3.0 cm EDV(Teich): Ao root area: LVPWd: 1.3 cm 101.2 ml ESV(Teich): 12.0 cm2 35.7 ml LA dimension: 6.8 cm EF(Teich): 64.7 % LVLd ap4: 7.5 cm SV(MOD-sp4): EDV(MOD-sp4): 67.0 ml 106.0 ml LVLs ap4: 6.6 cm ESV(MOD-sp4): 39.0 ml EF(MOD-sp4): 63.2 % Doppler Measurements & Calculations Ao V2 max: AI max kanwal: LV V1 max PG: PA V2 max: 109.9 cm/sec 509.0 cm/sec 2.6 mmHg 63.2 cm/sec Ao max P.8 mmHg AI max P.6 mmHg LV V1 max: PA max PG: AI dec slope: 80.9 cm/sec 1.6 mmHg 219.1 cm/sec2 AI P1/2t: 680.4 msec TR max kanwal: AV P1/2t-pr_phl: 275.5 cm/sec 680.4 msec TR max P.4 mmHg Left Ventricle There is mild concentric left ventricular hypertrophy. The left ventricular ejection fraction is normal. LV EF is 60-65%. Right Ventricle A moderator band is seen in the right ventricle. The right ventricular systolic function is mildly reduced. Atria The right atrium is normal. The left atrium is severely dilated. The interatrial septum bows toward right atrium consistent with elevated left atrial pressure. Mitral Valve Focal thickening of MV leaflets noted with echodensity attached to posterior MV leaflet that could represent ruptured chordae/ old vegetation. Color doppler suggestive of moderate to severe mitral regurgitation ( suspect severe MR). Recommend SALAZAR for better evaluation of mitral valve pathology. Aortic Valve AV leaflets appear focally thickened with preserved opening. The aortic valve is trileaflet. There is a peak gradient of 5 mm of Hg. There is a mild to moderate amount of aortic regurgitation. Tricuspid Valve TV leaflets partially seen. There is a moderate to severe amount of tricuspid regurgitation. RVSP estimation from TR jet not reliable in setting of RV systolic dysfunction. Pulmonic Valve The pulmonic valve is not well visualized. Great Vessels The aortic root is mildly dilated. IVC dilated with normal respiratory variation- estimated mean RA pressure at 8 mm Hg. Effusions Small to moderate pericardial effusion noted ( moderate adjacent ot RA and RV). : MANDY MORE > Kip Pruitt
[2018-07-13] MEDS: QUETIAPINE FUMARATE 25 MG TABLET PO SCH ×2 (17:40→21:30)
[2018-07-13] MEDS: DONEPEZIL HCL 5 MG TABLET PO SCH (21:41)
[2018-07-13] MEDS ORDERED: ATORVASTATIN CALCIUM 10 MG TABLET PO SCH (22:00)
[2018-07-14] MEDS ORDERED: METOPROLOL TARTRATE PF/INJ 5 MG/5 ML SDV IV ONE (01:00)
[2018-07-14] MEDS: HEPARIN SOD (PORCINE) 5,000 UNIT/ML 1 ML SYRINGE SUBCUT SCH ×2 (05:01→13:17)
[2018-07-14 07:51] LABS: ABSOLUTE EOSINOPHILS # (AUTO) 0.1 10^3/uL (0.0-0.6); ABSOLUTE LYMPHOCYTES (AUTO) 1.8 10^3/uL (0.5-4.7); ABSOLUTE MONOCYTES (AUTO) 0.4 10^3/uL (0.1-1.4); ABSOLUTE NEUT (AUTO) 0.9 10^3/uL (1.7-8.2); BASOPHILS % (AUTO) 0.9 % (0-2); EOSINOPHILS % (AUTO) 3.2 % (0-6); HEMATOCRIT 40.1 % (37.9-51.0); HEMOGLOBIN 13.6 g/dL (13.5-17.0); LYMPHOCYTES % (AUTO) 55.2 % (13-45); MEAN CORPUSCULAR HEMOGLOBIN 30.4 pg (27.0-33.4); MEAN CORPUSCULAR VOLUME 90 fl (80-97); MONOCYTES % (AUTO) 13.9 % (3-13); PLATELET COUNT 137 10^3/uL (150-450); RED BLOOD COUNT 4.48 10^6/uL (4.35-5.55); RED CELL DISTRIBUTION WIDTH 15.1 % (11.5-14.0); SEGMENTED NEUTROPHILS % (AUTO) 26.8 % (42-78); TOTAL CELLS COUNTED % (AUTO) 100 %; WHITE BLOOD COUNT 3.2 10^3/uL (4.0-10.5)
[2018-07-14 08:47] LABS: ANION GAP 7 (5-19); BLOOD UREA NITROGEN 18 mg/dL (7-20); CALCIUM 9.6 mg/dL (8.4-10.2); CARBON DIOXIDE 25 mmol/L (22-30); CHLORIDE 109 mmol/L (98-107); GLUCOSE 121 mg/dL (75-110); POTASSIUM 3.9 mmol/L (3.6-5.0); SODIUM 141.2 mmol/L (137-145)
[2018-07-14] MEDS: CARVEDILOL 3.125 MG TABLET PO SCH (09:33)
[2018-07-14] MEDS: ASPIRIN 81 MG TABLET, CHEWABLE PO SCH (09:33)
[2018-07-14] MEDS: FAMOTIDINE 20 MG TABLET PO SCH (09:33)
[2018-07-14] MEDS: QUETIAPINE FUMARATE 25 MG TABLET PO SCH (09:35)
[2018-07-14] MEDS: DOCUSATE SODIUM 100 MG/10 ML UDC PO SCH (09:36)
[2018-07-14] MEDS ORDERED: DILTIAZEM HCL 180 MG CAPSULE.CR PO SCH (10:00)
[2018-07-14] MEDS ORDERED: DILTIAZEM HCL 300 MG PO SCH (10:00)
[2018-07-14] MEDS ORDERED: DILTIAZEM HCL 120 MG CAP.SR.24H PO SCH (10:00)
--- NOTE | 2018-07-14 11:10 | PDOC TRANSFER SUMMARY ---
General - Admit/Disc Date/PCP Admission Date/Primary Care Provider: 07/12/18 14:20 RUFINO PATEL DO Discharge Date: 07/14/18 - Discharge Diagnosis (1) TIA (transient ischemic attack) Is this a current diagnosis for this admission?: Yes (2) History of CVA (cerebrovascular accident) Is this a current diagnosis for this admission?: Yes (3) Dementia Is this a current diagnosis for this admission?: Yes (4) Hypertension Is this a current diagnosis for this admission?: Yes (5) Mitral regurgitation Is this a current diagnosis for this admission?: Yes - Additional Information Prescriptions: Aspirin [Aspirin 81 mg Chewable Tablet] 81 mg PO DAILY #60 tab.chew Atorvastatin Calcium [Lipitor 20 mg Tablet] 20 mg PO QHS #30 tablet Home Medications: Acetaminophen [Tylenol 325 mg Tablet] 650 mg PO Q6HP PRN 07/12/18 Carvedilol [Coreg 3.125 mg Tablet] 3.125 mg PO Q12 07/12/18 Cholecalciferol (Vitamin D3) [Vitamin D3] 50,000 unit PO TH@1000 07/12/18 Cold Cream/Zinc Oxide/Star/Arturo [Dermacloud Ointment] 1 applic TP ASDIR PRN 07/12/18 Diltiazem HCl [Diltiazem 24Hr ER] 300 mg PO DAILY 07/12/18 Donepezil HCl [Aricept 5 mg Tablet] 5 mg PO QHS 07/12/18 Eyelid Cleanser Combination 5 [Ocusoft Lid Scrub] 1 each TP BID 07/12/18 Guaifenesin [Mucus-Chest Congestion] 10 ml PO Q4HP PRN 07/12/18 Lidocaine [Lidoderm 5% (700 mg) Transdermal Patch] 1 patch TP DAILY 07/12/18 Magnesium Hydroxide [Milk of Magnesia 30 ml Udcup] 30 ml PO ASDIR PRN 07/12/18 Neomycin/Bacitracin/Polymyxinb [Triple Antibiotic Ointment] 1 each TP ASDIR PRN 07/12/18 Pantoprazole Sodium [Protonix [address] Tablet] 40 mg PO DAILY 07/12/18 Quetiapine Fumarate [Seroquel 25 mg Tablet] 12.5 mg PO BID 07/12/18 Quetiapine Fumarate [Seroquel] 50 mg PO QHS 07/12/18 Aspirin [Aspirin 81 mg Chewable Tablet] 81 mg PO DAILY #60 tab.chew 07/14/18 Atorvastatin Calcium [Lipitor 20 mg Tablet] 20 mg PO QHS #30 tablet 07/14/18 History of Present Illness Admission Date/PCP: 07/12/18 14:20 RUFINO PATEL DO History of Present Illness: Admitting hospitalist's H&P: JOSUÉ DIAZ is a 72 [facility] old male [facility], past medical history of advanced dementia, osteoarthritis, hyperlipidemia, CVA, hypertension, was sent to ED for evaluation of left facial droop. He was reportedly noticed to have left-sided facial droop this morning around 11 AM time of onset unknown. Unfortunately patient has severe dementia who is awake and alert, does not follow any commands, which is his baseline per Hanh Diaz her daughter who als has POA. As per daughter who is at the bedside patient is complaing of left lower quadrant abdominal pain, otherwise he is at baseline his baseline apart from his new onset left facial droop. Patient does not seem to be in any acute distress, he has mild left facial droop but unfortunately patient does not follow any command and it is not possible to do a proper neurological evaluation. By observation all other cranial nerves are intact and patient is moving all his extremities. Patient did not receive TPA as he was outside of window period. In ED his vitals were within normal limits, WBC 2.5, hemoglobin 13.5, platelets 225, PT/INR within normal limits, CMP within normal limits, urinalysis negative. CT head was negative for any acute stroke. Notes. Patient's daughter Ms. Hanh Diaz who has POA and can be reached at [phone] want to be called before patient is discharged. Hospital Course Hospital Course: This is a 72 [facility] old male [facility] resident with a past medical history of advanced dementia (AO x 0 at baseline), CHF, osteoarthritis, hyperlipidemia, prior CVA, hypertension, and history of paroxysmal AFib, not on anticogagulation who was [facility] for evaluation of an acute left facial droop. CT head was negative. He was not a TPA candidate. MRI did not show an acute CVA. He was started on aspirin and atorvastatin. He does have chronic AFib and is not on anticoagulation. Discussed with patient's son and ODELL Schultz/daughter. They don't want him to be on anticoagulation due to his high fall risks. They are amenable to starting him on aspirin. He had a vague lower abdominal pain on admission hence CT was done which showed an incidental finding of LA dilatation. He dean shave a murmur so echo was pursued. Discussed echo results with Dr. Pruitt. Echo showed possible old vegetation vs ruptured chordae with mitral regurgitation. Patient is awake and appears comfortable. Blood pressures stable and HR WNL. No signs of cardiogenic shock. Discussed with clinician oncology dirt bike mechanic at [facility], Dr. Slater that this is likely not a new or acute MR as patient does not appear to be in cardiogenic shock. He recommends outpatient evaluation for possible SALAZAR if warranted. He will see the patient in his clinic on Sunday at [facility] ([phone]) for further evaluation. Physical Exam Vital Signs: Temp Pulse Resp BP Pulse Ox 97.4 F 99 15 127/69 H 99 07/14/18 08:10 07/14/18 08:10 07/14/18 08:10 07/14/18 08:10 07/14/18 08:10 Intake & Output 07/13/18 07/14/18 07/15/18 06:59 06:59 06:59 Intake Total 671 50 Balance 671 50 Weight 142 lb 3.17 oz 147 lb 7.828 oz General appearance: PRESENT: no acute distress, well-developed, well-nourished Eye exam: PRESENT: conjunctiva pink, EOMI, PERRLA. ABSENT: scleral icterus Ear exam: PRESENT: normal external ear exam Mouth exam: PRESENT: moist, tongue midline Neck exam: ABSENT: carotid bruit, JVD, lymphadenopathy, thyromegaly Respiratory exam: PRESENT: clear to auscultation ashlee. ABSENT: rales, rhonchi, wheezes Cardiovascular exam: PRESENT: RRR, systolic murmur. ABSENT: rubs Pulses: PRESENT: normal dorsalis pedis pul GI/Abdominal exam: PRESENT: normal bowel sounds, soft. ABSENT: distended, guarding, mass, organolmegaly, rebound, tenderness Rectal exam: PRESENT: deferred Neurological exam: PRESENT: awake. ABSENT: oriented to person, oriented to place, oriented to time Results Laboratory Results: 07/14/18 07:13 07/14/18 08:06 07/14/18 07/14/18 07:13 08:06 WBC 3.2 L RBC 4.48 Hgb 13.6 Hct 40.1 MCV 90 MCH 30.4 MCHC 34.0 RDW 15.1 H Plt Count 137 L Seg Neutrophils % 26.8 L Lymphocytes % 55.2 H Monocytes % 13.9 H Eosinophils % 3.2 Basophils % 0.9 Absolute Neutrophils 0.9 L Absolute Lymphocytes 1.8 Absolute Monocytes 0.4 Absolute Eosinophils 0.1 Absolute Basophils 0.0 Sodium 141.2 Potassium 3.9 Chloride 109 H Carbon Dioxide 25 Anion Gap 7 BUN 18 Creatinine 0.89 Est GFR ( Amer) > 60 Est GFR (Non-Af Amer) > 60 Glucose 121 H Calcium 9.6 Magnesium 1.8 Impressions: Abdomen/Pelvis CT 07/12/18 00:00 IMPRESSION: NO SIGNIFICANT OR ACUTE PROCESS IN THE ABDOMEN OR PELVIS. Carotid Doppler Study 07/12/18 00:00 IMPRESSION: NO HEMODYNAMICALLY SIGNIFICANT STENOSIS. Chest X-Ray 07/12/18 11:59 IMPRESSION: Cardiomegaly. Otherwise, no acute radiographic finding in the chest. Head CT 07/12/18 12:00 IMPRESSION: No acute intracranial findings. EVIDENCE OF ACUTE STROKE: NO. Head MRI 07/13/18 11:43 IMPRESSION: 1. Mild right mastoid effusion. 2. Mild atrophy and small vessel change, chronic disease. 3. No acute abnormality. No recent CVA appreciated. 4. Limiting motion. EVIDENCE OF ACUTE STROKE: NO. Qualifiers - * PATIENT BEING DISCHARGED WITH ANY OF THE FOLLOWING DIAGNOSIS: No Acute Heart Failure Is this a Heart Failure Patient?: No
[2018-07-14 12:25] VITALS: BP 143/69
== END 2018-07-14 16:32 ==
LOC: ER 11:50 → EH 14:20 → INTOOBSV 14:20 → 3N 16:49
PROVIDERS: ADMIT Internal Medicine; ATTEND Internal Medicine
DX: G45.9 Transient cerebral ischemic attack, unspecified (principal); Z86.73 Personal history of transient ischemic attack (TIA), and cerebral infarction without residual deficits; F03.90 Unspecified dementia, unspecified severity, without behavioral disturbance, psychotic disturbance, mood disturbance, and anxiety; I10 Essential (primary) hypertension; I34.0 Nonrheumatic mitral (valve) insufficiency; E78.5 Hyperlipidemia, unspecified; R10.32 Left lower quadrant pain; I48.2 Chronic atrial fibrillation; M19.90 Unspecified osteoarthritis, unspecified site; Z79.899 Other long term (current) drug therapy; Z79.82 Long term (current) use of aspirin
CPT/HCPCS: 93005 ×2; 99285; 51701; 36415 ×2; 87040; 87086; 83735; 84443; 85025 ×2; 85610; 85730; 80048; 80053; 81001; 80061; 93306; 93880; 70551; 71045; 70450; 74176; 93010; G0378 ×3; A9270 ×17; J1644; J1630; J3490; J2060; J7030

== ENCOUNTER → 2018-08-26 | Outpatient (CLI) | payer MEDICARE ==
[2018-08-26 15:49] LABS: HEMATOCRIT 35.7 % (37.9-51.0); HEMOGLOBIN 12.2 g/dL (13.5-17.0); MEAN CORPUSCULAR HGB CONC 34.2 g/dL (32.0-36.0); MEAN CORPUSCULAR VOLUME 91 fl (80-97); PLATELET COUNT 130 10^3/uL (150-450); RED BLOOD COUNT 3.95 10^6/uL (4.35-5.55); RED CELL DISTRIBUTION WIDTH 15.4 % (11.5-14.0); WHITE BLOOD COUNT 3.3 10^3/uL (4.0-10.5)
== END ==
LOC: LAB 15:29
DX: I48.91 Unspecified atrial fibrillation (principal)
CPT/HCPCS: 36415; 85027

== ENCOUNTER → 2018-09-02 | Outpatient (CLI) | payer MEDICARE ==
[2018-09-02 17:57] LABS: HEMATOCRIT 35.4 % (37.9-51.0); HEMOGLOBIN 12.1 g/dL (13.5-17.0); MEAN CORPUSCULAR HEMOGLOBIN 30.8 pg (27.0-33.4); MEAN CORPUSCULAR HGB CONC 34.1 g/dL (32.0-36.0); MEAN CORPUSCULAR VOLUME 90 fl (80-97); PLATELET COUNT 140 10^3/uL (150-450); RED BLOOD COUNT 3.92 10^6/uL (4.35-5.55); RED CELL DISTRIBUTION WIDTH 15.6 % (11.5-14.0); WHITE BLOOD COUNT 3.7 10^3/uL (4.0-10.5)
== END ==
LOC: OD 16:41
PROVIDERS: ATTEND Nurse Practitioner
DX: I48.91 Unspecified atrial fibrillation (principal)
CPT/HCPCS: 36415; 85027

== ENCOUNTER 2018-09-30 15:37 | Emergency (ER) | payer MEDICARE ==
--- NOTE | 2018-09-30 17:04 | ER Document Report ---
ED General - General Chief Complaint: Rectal Bleeding Stated Complaint: RECTAL BLEEDING Time Seen by Provider: 09/30/18 15:57 Primary Care Provider: JOSÉ VIDAL APRN-BC [Primary Care Provider] - Follow up in 3-5 days Notes: Patient is a 73-year-old male with advanced dementia, atrial fibrillation that presents to the emergency department for chief complaint of bleeding hemorrhoids. Patient apparently has been dealing with hemorrhoids, bleeding on and off for the past week, history provided by EMS report from the care home, he apparently lives in a dementia unit, and is unable to provide any meaningful history at this time. Per his records, he was on Eliquis, which is been held the last several days, they apparently did to diaper changes and noticed some blood in the diapers, and were concerned so he was brought to the emergency department. The did not report any syncopal episodes, the patient is ambulatory in the room right now, and does not appear to be in any distress. Past Medical History: Dementia, atrial fibrillation, hypertension, hyperlipidemia Past Surgical History: Not obtainable at this time Social History: Lives in a dementia care unit. Family History: Not available at this time. Allergies: Reviewed, see documented allergy list. REVIEW OF SYSTEMS: Complete review of systems is not obtainable secondary to the patient's advanced dementia. PHYSICAL EXAMINATION: Vital signs reviewed, nursing noted reviewed. GENERAL: Well-appearing, well-nourished and in no acute distress. Patient is constantly talking, difficult to redirect, but pleasant, not agitated HEAD: Atraumatic, normocephalic. EYES: Eyes appear normal, extraocular movements intact, sclera anicteric, conjunctiva are normal. ENT: nares patent, oropharynx clear without exudates. Moist mucous membranes. NECK: Normal range of motion, supple without lymphadenopathy LUNGS: Breath sounds clear to auscultation bilaterally and equal. No wheezes rales or rhonchi. HEART: Regular rate and rhythm without murmurs ABDOMEN: Soft, nontender, normoactive bowel sounds. No rebound, guarding, or rigidity. No masses appreciated. External rectal exam: Patient noted to have a few small prolapsed hemorrhoids, with no active bleeding at this time. No thrombosed hemorrhoids appreciated. EXTREMITIES: Nontender, good range of motion, no pitting or edema. NEUROLOGICAL: No focal neurological deficits. Moves all extremities spontaneously Motor and sensory grossly intact on exam. PSYCH: Flat affect, difficult to redirect, continues to pace and walk around the room. SKIN: Warm, Dry, normal turgor, no rashes or lesions noted on exposed skin TRAVEL OUTSIDE OF THE [place] IN LAST 30 DAYS: No - Related Data Allergies/Adverse Reactions: divalproex sodium [From Depakote] Allergy (Verified 04/28/18 19:02) Past Medical History - Social History Smoking Status: Unknown if Ever Smoked Family History: Reviewed & Not Pertinent Patient has suicidal ideation: No Patient has homicidal ideation: No - Past Medical History Cardiac Medical History: Reports: Hx Atrial Fibrillation, Hx Hypercholesterolemia, Hx Hypertension Neurological Medical History: Reports: Hx Seizures Renal/ Medical History: Denies: Hx Peritoneal Dialysis - Immunizations Hx Diphtheria, Pertussis, Tetanus Vaccination: - unknown Physical Exam - Vital signs Vitals: Pulse Resp BP Pulse Ox 73 18 145/76 H 98 09/30/18 16:05 09/30/18 16:05 09/30/18 16:05 09/30/18 16:05 Course - Re-evaluation Re-evalutation: Patient seen and examined vital signs reviewed. Patient was evaluated and treated as appropriate for the patient's presenting symptoms and complaint, with consideration of any critical or life threatening conditions that may be associated with their obtained history and exam as noted above. Patient appeared well on exam, no distress, his rectal exam demonstrated small prolapsed hemorrhoids, no active bleeding noted, I discussed this with the patient's daughter, and what their concerns were, and she wanted to see if there is any potential surgical opinion, I consulted Dr. Dugan with surgery, who came and saw the patient and agreed, he did an exam, do not think there is anything that could be treated with an operation or procedure such as banding at this point. Recommended topical medications. At this point I called the sánchez mora back, stated we had evaluation from surgical standpoint, and there is no need for surgery at this point, and she understood this. The patient was re-evaluated and was stable Evaluation was most consistent with hemorrhoids, intermittently bleeding, advised to hold his Eliquis for 3 more days, and to then resume it, and to use suppositories, and MiraLAX to prevent any straining. Plan of care was discussed with the patient at this point, after careful consideration I feel that that patient can be discharged from the emergency department, the patient was educated treatments and reasons to return to the emergency department based on their presumed diagnosis as noted above, they were advised to followup with a primary care physician in 2-3 days. Patient was agreeable to plan of care. *Note is created using voice recognition software and may contain spelling, syntax or grammatical errors. - Vital Signs Vital signs: Temp Pulse Resp BP Pulse Ox 120 H 18 173/95 H 98 09/30/18 18:12 09/30/18 18:12 09/30/18 18:12 09/30/18 18:12 Discharge - Discharge Clinical Impression: Internal hemorrhoids Condition: Stable Disposition: HOME-SNF (ED ONLY) Instructions: Hemorrhoids ([facility]) Additional Instructions: Mr. Noe was seen by our general surgeon today, and no intervention such as surgery or banding was recommended at this time due to the smaller size of his hemorrhoids, he has been prescribed suppositories, to help shrink hemorrhoids further, more importantly, he was prescribed MiraLAX, as a stool softener and laxative, to prevent straining, reduce risk of bleeding, we recommend holding his Eliquis for an additional 3 days, and then resuming it back at his normal dose. Have him follow-up with the provider that sees him at [facility]. Prescriptions: Hydrocortisone Acetate [Anusol Hc 25 mg Supp.rect] 1 supp.rect [place] BID #14 supp.rect Polyethylene Glycol 3350 [Miralax] 17 gm PO DAILY #238 gm Referrals: JOSÉ VIDAL, [employer] SAL[employer] COUNTERPERSON-BC [Primary Care Provider] - Follow up in 3-5 days
[2018-09-30 18:18] VITALS: BP 173/95
== END 2018-09-30 18:00 ==
LOC: ER 15:37
DX: K64.8 Other hemorrhoids (principal); I10 Essential (primary) hypertension; F03.90 Unspecified dementia, unspecified severity, without behavioral disturbance, psychotic disturbance, mood disturbance, and anxiety
CPT/HCPCS: 99283

== ENCOUNTER 2019-08-20 00:44 | Emergency (ER) | payer MEDICARE ==
--- NOTE | 2019-08-20 01:17 | ER Document Report ---
HPI - HPI Time Seen by Provider: 08/20/19 00:55 Context: Patient is a 74-year-old male that comes emergency department by EMS from long- term care facility (Alzheimer's unit) for chief complaint of bleeding from his mouth. Patient was believed to have bitten his tongue just prior to arrival and he was found with blood on his shirt. No other complaints. Patient is completely demented and is unable to give me any meaningful history. Patient does not follow directions but reportedly this is his baseline. Patient is on Eliquis with a history of atrial fibrillation. Past Medical History - General Information source: Patient, Emergency Med Personnel - Social History Smoking Status: Unknown if Ever Smoked Frequency of alcohol use: None Drug Abuse: None Lives with: Skilled Nursing Family History: Reviewed & Not Pertinent - Past Medical History Cardiac Medical History: Reports: Hx Atrial Fibrillation, Hx Hypercholesterolemia, Hx Hypertension Neurological Medical History: Reports: Hx Seizures Renal/ Medical History: Denies: Hx Peritoneal Dialysis - Immunizations Hx Diphtheria, Pertussis, Tetanus Vaccination: Yes - unknown Vertical Provider Document - CONSTITUTIONAL General Appearance: WD/WN, No Apparent Distress - INFECTION CONTROL TRAVEL OUTSIDE OF THE [place] IN LAST 30 DAYS: No - HEENT HEENT: Atraumatic, Normocephalic. negative: Normal ENT Exam - Teeth with no noted injury, gums and lips with no noted injury. There was a small amount of blood with a clot on the mid right tongue anteriorly, but after this was gently pushed away there was no additional bleeding. No other injury or abnormality noted. Normal eyes, nasal, ears exams - NECK Neck: Normal Inspection - RESPIRATORY Respiratory: Breath Sounds Normal, No Respiratory Distress - CARDIOVASCULAR Cardiovascular: Regular Rate, Regular Rhythm - GI/ABDOMEN Gastrointestinal: Abdomen Soft, Abdomen Non-Tender - BACK Back: Normal Inspection - MUSCULOSKELETAL/EXTREMETIES Musculoskeletal/Extremeties: STERLING LUNA - NEURO Level of Consciousness: Awake, Alert - DERM Integumentary: Warm, Dry, No Rash Course - Re-evaluation Re-evalutation: Patient appears to have been bleeding, most likely from a small laceration/bite to the right anterior tongue, however there is no current bleeding, no significant wound, patient is not spitting up blood, he is tolerating secretions without difficulty, there is no bleeding noted down the posterior pharynx. Discussed with Dr. Murphy. Unremarkable exam otherwise. Given recommendations and return precautions. - Vital Signs Vital signs: Temp Pulse Resp BP Pulse Ox 97.6 F 92 15 112/56 L 98 08/20/19 00:51 08/20/19 00:51 08/20/19 00:51 08/20/19 00:51 08/20/19 00:51 Discharge - Discharge Clinical Impression: Tongue laceration Qualifiers: Encounter type: initial encounter Qualified Code(s): S01.512A - Laceration without foreign body of oral cavity, initial encounter Condition: Stable Disposition: HOME, SELF-CARE Additional Instructions: The laceration has stopped bleeding on the evaluation tonight, and there is no noted wound that requires repair. There will likely be some mild bleeding over the next couple of days. Avoid extremes of temperatures with food. Follow-up with primary care for additional management. Return to the emergency department for any concerning symptoms including very heavy bleeding, passing out, or any other concerning symptoms. Referrals: JOSÉ VIDAL, ISIAH-HUNTER [Primary Care Provider] - Follow up as needed
[2019-08-20 02:58] VITALS: BP 117/68
== END 2019-08-20 03:15 | disposition home or self-care (01) ==
LOC: ER 00:44
DX: S01.512A Laceration without foreign body of oral cavity, initial encounter (principal); X58.XXXA Exposure to other specified factors, initial encounter; F03.90 Unspecified dementia, unspecified severity, without behavioral disturbance, psychotic disturbance, mood disturbance, and anxiety; I10 Essential (primary) hypertension; I48.91 Unspecified atrial fibrillation; Z79.01 Long term (current) use of anticoagulants
CPT/HCPCS: 99284